=== PATIENT | male | born 1955 | race Caucasian/White ===

== ENCOUNTER 2020-06-16 14:39 | Outpatient (RCR) | payer OTHER, SELFPAY ==
--- NOTE | 2020-06-16 16:04 | PTOPEVAL ---
Thank you for referring Rodney Cuevas to [facility]– [place]Note 2[place]? The patient is scheduled to be seen for therapy? ____x/week for ___ weeks. Please review, sign, date and return this plan of care QUENTIN. I agree with and certify that the following plan of care is medically necessary. Referring Physician Date Admitting Provider: Attending Provider: Francisco Casas Referring Provider: *PT Outpatient Evaluation Start: 06/16/20 14:50 Freq: Status: Active Protocol: Document 06/16/20 14:55 J (Rec: 06/16/20 15:52 Linnea [id number]) Therapy Assessment Status Assessment Status Assessment Status Evaluation Evaluation Information Problem Diagnosis parkinsons, falls, unsteady gait Onset 06/08/20 Subjective Information patient reports he is coming Query Text:As Reported By Patient/ to skilled PT per referral Family from his MD. he reports he needs help with his balance, gait, and to avoid falls. he reports he does have parkinsons. he reports he has been diagnosed over a year ago . he reports he is retired now . he reports prior to [facility] he was working 3 jobs. he reports he has problems with his balance. he reports he has only fallen 1 time. Prior Level of Function Comments Additional Prior Level of Function patient reports he is now Comments retired. [place] he reportshe has not found any hobbies yet with his [facility]. Pain Assessment Timing of Pain Assessment Timing of Pain Assessment Assessment Self Report Self Report Pain Level 0 Pain Score Pain Score 0: Self Report Upper Extremity Range of Motion General Upper Extremity Range of Motion Reason Not Measured WFL/Left,WFL/Right Lower Extremity Range of Motion General Lower Extremity Range of Motion Reason Not Measured WFL/Left,WFL/Right Lower Extremity Muscle Strength Testing Hip Strength Bilateral Hip Flexion Strength 4+ Good + Hip Extension Strength 5 Normal Hip Strength Comments sitting Knee Strength Bilateral Knee Flexion Strength 5 Normal Knee Extension Strength 5 Normal Ankle Strength Bilateral Ankle Dorsiflexion Strength 5 Normal Ankle Plantarflexion Strength 4+ Good + Upper
--- NOTE | 2020-07-06 09:57 | PTOPEVAL ---
Thank you for referring Rodney Cuevas to [facility].? The patient is scheduled to be seen for therapy? ____x/week for ___ weeks. Please review, sign, date and return this plan of care QUENTIN. I agree with and certify that the following plan of care is medically necessary. Referring Physician Date Admitting Provider: Attending Provider: Francisco Casas Referring Provider: *PT Outpatient Evaluation Start: 06/16/20 14:50 Freq: Status: Active Protocol: Document 07/06/20 08:46 ACR (Rec: 07/06/20 09:57 [id number]) Therapy Assessment Status Assessment Status Assessment Status Discharge Evaluation Information Problem Diagnosis parkinsons, falls, unsteady gait Onset 06/08/20 Subjective Information Patient reports since the Query Text:As Reported By Patient/ beginning of therapy he is Family about 50% improved and that walking seems to be a bit easier. Patient reports he can do pretty much everything he needs to do, but requires frequent rest breaks due to the feeling of fatigue in his legs. Pain Assessment Pain Scale Pain Scale Used Numeric (1 - 10) Self Report Pain Assessment Generalized Reported Pain Level 0 Pain Score Pain Score 0: Self Report Interventions Used Interventions Used By Clinicians Activity or ADL's,Education, Exercise Lower Extremity Muscle Strength Testing Hip Strength Bilateral Hip Flexion Strength 5 Normal Hip Extension Strength 5 Normal Upper Extremity Muscle Strength Testing Scapular/Shoulder Bilateral Shoulder Flexion Strength 5 Normal Balance Assessment Tinetti Balance Assessment Sitting Balance Steady, safe Ability to Arise Able, w/o using arms Attempts to Arise Arises on 1st attempt Immediate Standing Balance Steady w/o support Standing Balance Narrow stance w/o support Nudged Response Steady Standing with Eyes Closed Steady Step Pattern Turning 360 Degrees Continuous steps Stability Turning 360 Degrees Steady Sitting Down Safe, steady Initiation of Gait No hesitancy Right Foot Step Length Does pass stance foot Right Foot Step Height Completely clears floor Left Foot Step Length Does pass stance foot Left Foot Step Height Completely clears floor Step Symmetry Step length appears equal Step Continuity Steps appear continuous Path Descript
== END 2020-07-06 15:00 | disposition home or self-care (01) ==
LOC: CHSPT 14:39
DX: G20 Parkinson's disease (principal); R26.81 Unsteadiness on feet
CPT/HCPCS: 97110; 97112; 97140; 97161

== ENCOUNTER 2021-07-22 08:02 | Outpatient (CLI) | payer OTHER, SELFPAY ==
[2021-07-22 08:50] LABS: Add Urine Microscopic? NO; Appearance Urine Clear (Clear); Bilirubin Urine Negative (Negative); Blood Urine Negative (Negative); Color Urine Light Yellow (Yellow); Glucose Urine UA Negative (Negative); Ketones Urine Negative (Negative); Leukocyte Esterase Ur Negative (Negative); Nitrate Urine Negative (Negative); Protein Urine Negative (Negative); Specific Grav Ur >= 1.030 (1.010-1.020); Urobilinogen Urine 0.2 mg/dL (0.2-1.0)
[2021-07-22 09:36] LABS: Alanine Aminotransferase 23 U/L (16-63); Albumin Level 4.4 g/dL (3.4-5.0); Alkaline Phosphatase 63 U/L (46-116); Anion Gap 8 mmol/L (8-16); Aspartate Amino Transferase 21 U/L (15-37); Bilirubin,Total 0.7 mg/dL (0.00-1.00); Blood Urea Nitrogen 34 mg/dL (7-18); Calcium 9.4 mg/dL (8.5-10.1); Carbon Dioxide 30 mmol/L (21-32); Chloride 100 mmol/L (98-108); Cholesterol 213 mg/dL (0-200); Creatine Kinase 117 U/L (39-308); Estimated Glomerular Filt Rate 55; Glucose 87 mg/dL (70-99); HDL Direct 85 mg/dL (40-60); LDL Cholesterol Calculated 110 mg/dL (<130); Osmolality Calculated 292 mOsm/kg (285-295); Potassium 5.7 mmol/L (3.5-5.1); Sodium 138 mmol/L (136-145); Total Protein 7.5 g/dL (6.4-8.2); Triglycerides 92 mg/dL (0-150)
== END 2021-07-22 08:03 | disposition home or self-care (01) ==
LOC: CHSLAB 08:04
PROVIDERS: PCP Internal Medicine; Visit Provider Internal Medicine
DX: E78.2 Mixed hyperlipidemia (principal); I10 Essential (primary) hypertension
CPT/HCPCS: 36415; 80053; 80061; 81003; 82550

== ENCOUNTER 2021-08-13 12:46 | Outpatient (CLI) | payer OTHER, SELFPAY ==
--- NOTE | ~2021-08-13 | CT_ITS ---
EXAMINATION: CT sinus wo con DATE: 08/13/2021 13:15 INDICATION: Chronic sinusitis TECHNIQUE: Computed tomography (CT) of the paranasal sinuses was performed without contrast. Iterativ e reconstruction technique was employed. Exam dose: 273.54 mGy-cm total exam DLP. COMPARISON: None FINDINGS: There is rightward bowing of the nasal septum. There is poonam bullosa and intralamellar cell of the left middle nasal turbinate. The nasal turbinat es are prominently swollen bilaterally, left greater than right. The ostiomeatal units are patent. Small bilateral nasal antral windows open to the middle meatus on each side. 1.4 cm polyp or mucous retention cyst at the floor of the left maxillary sinus. There is minimal mucoperiosteal thickening of the right frontal sinus and anterior right ethmoid air cells. The paranasal sinuses are otherwise normally developed and aerated. The mastoid air cells are normally developed and aerated. Middle and inner ear apparatus appear laura l bilaterally. IMPRESSION: Borderline nasal septum Poonam bullosa and intralamellar cell of left middle nasal turbinate Patent ostiomeatal units Small bilateral nasal antral windows 1.4 cm polyp or mucous retention cyst at the floor of the left maxillary sinus Minimal mucoperiosteal thickening of the right frontal sinus and anterior ethmoids Reviewed, dictated and finalized at [facility]. Reviewed, dictated and finalized at location B. BUILDER IMPRESSION: Borderline nasal septum Poonam bullosa and intralamellar cell of left middle nasal turbinate Patent ostiomeatal units Small bilateral nasal antral windows 1.4 cm polyp or mucous retention cyst at the floor of the left maxillary sinus Minimal mucoperiosteal thickening of the right frontal sinus and anterior ethmo ids
== END 2021-08-13 12:47 | disposition home or self-care (01) ==
LOC: CHSIMG 12:49
PROVIDERS: PCP Internal Medicine; Visit Provider Internal Medicine
DX: J32.9 Chronic sinusitis, unspecified (principal)
CPT/HCPCS: 70486

== ENCOUNTER 2021-09-02 11:31 | Outpatient (CLI) | payer OTHER, SELFPAY ==
[2021-09-02 12:07] LABS: Anion Gap 9 mmol/L (8-16); Blood Urea Nitrogen 21 mg/dL (7-18); Calcium 9.2 mg/dL (8.5-10.1); Carbon Dioxide 30 mmol/L (21-32); Chloride 104 mmol/L (98-108); Estimated Glomerular Filt Rate 57; Glucose 79 mg/dL (70-99); Osmolality Calculated 298 mOsm/kg (285-295); Potassium 4.9 mmol/L (3.5-5.1); Sodium 143 mmol/L (136-145)
== END 2021-09-02 11:32 | disposition home or self-care (01) ==
LOC: CHSLAB 11:32
PROVIDERS: PCP Internal Medicine; Visit Provider Internal Medicine
DX: I10 Essential (primary) hypertension (principal)
CPT/HCPCS: 36415; 80048

== ENCOUNTER 2021-10-15 12:18 | Outpatient (CLI) | payer OTHER, SELFPAY ==
--- NOTE | 2021-10-15 12:20 | ECG_ITS ---
Measurements Intervals [place] Rate: 64 P: 48 OH: 170 QRS: 5 QRSD: 122 T: 9 QT: 409 QTc: 422 Interpretive Statements SINUS RHYTHM POOR R-WAVE PROGRESSION ABNORMAL ECG NO PREVIOUS ECG AVAILABLE FOR COMPARISON Electronically Signed On 10-15-2021 15:33:19 CDT by Miguel Esquivel M.D.
== END 2021-10-15 12:19 | disposition home or self-care (01) ==
PROVIDERS: PCP Internal Medicine; Visit Provider Anesthesiology
DX: I10 Essential (primary) hypertension (principal)
CPT/HCPCS: 93005

== ENCOUNTER 2021-10-22 00:57 | Day surgery (SDC) | payer OTHER, SELFPAY ==
[2021-10-15 11:47] VITALS: BMI 32.8
--- NOTE | 2021-10-15 12:03 | PC.NURSE ---
Report to the Outpatient Waiting Room, entrance under the green pavilion located off [facility], at time _0800_ on date _10/22/21_. OR Time: _1000_. - You and your visitor will be asked a series of questions to screen for COVID 19 for your protection. - A mask is required within the hospital. One visitor will be allowed to accompany the patient into the hospital. Patients visitor will be instructed to remain with patient at all times or leave the building. We will allow the visitor to come back to the postoperative area when patient is ready. Preoperative COVID Testing Requirements: NONE Patients may have clear liquids (water, carbonated beverages, clear teas, apple juice) until 3 hours prior to surgery (0700 AM) with a maximum of 20 ounces. - No food from midnight until time of surgery Take the following medications with a SIP of water the morning of surgery: _BUPROPION, BUSPIRONE, CARBIDOPA-LEVODOPA, CLONAZEPAM, ESCITALOPRAM, GABAPENTIN, NASAL SPAY_ Medications to discontinue _ASPIRIN PER DR. MURRELL'S INSTRUCTIONS, MULTIVITAMIN 3 DAYS PRIOR TO SURGERY PER ANESTHESIA, Date to take last dose 10/18/21_ Please no deodorant, or body powder the day of surgery. No jewelry (including any body piercings) or valuables the day of surgery, leave them at home. Please take a shower or bath the night before, or the morning of, surgery with an antibacterial soap. Wear comfortable, loose fitting clothing. - Jewelry must be removed prior to entering the operating room. Rings and piercings that are not removed may be cut off. - The hospital will not accept responsibility for valuables. - Please leave all valuables, including medications, at home the day of surgery. If you are going home after surgery, a licensed van driver must drive you home. - NO public transportation without another adult. - We recommend that an adult stay with you for 24 hours following discharge. - We also recommend that you do not drive, make important decision, drink alcoholic beverages, or take any drugs that were not prescribed by your health care provider for at least 24 hours after your discharge time. Follow any additional instructions given to you from your surgeon. Telephone instructions given to _PT'S SPOUSE (HAYLIE)_and asked if any additional questions and then verbalized understanding. Patient advised to call surgeon office or pre surgery nurse liaison [phone] if any additional questions.
--- NOTE | 2021-10-21 08:06 | PM.IMHP ---
H&P: HPI History of Present Illness Date/Time: 10/21/21 08:06 Chief Complaint: Nasal obstruction nasal congestion poonam bullosa on the left septal deviation turbinate hypertrophy chronic sinusitis. Narrative: Patient presents for planned surgical procedure no change in symptoms no change in history Review of Systems Constitutional: Constitutional: Denies fatigue, Denies fever(s) and Denies lethargy Eyes: Eyes: Denies blurry vision and Denies change in vision ENT: Reports as per HPI Cardiovascular: Cardiovascular: Denies chest pain Respiratory: Respiratory: Denies cough Endocrine: Endocrine: Denies fatigue Hematologic/Lymphatic: Hematologic/Lymphatic: Denies easy bleeding, Denies easy bruising and Denies lymphadenopathy Allergic/Immunologic: Allergic/Immunologic: Denies seasonal rhinorrhea [facility] Past Medical History Medical History (Updated 10/21/21 @ 08:09 by Gabriel Jarrett MD) Allergies Anxiety Hypertension Ulcer Family History Family History (Updated 09/08/21 @ 09:54 by Camille Zamora MA) Father Asthma Heart disease Mother Depression Sibling Diabetes mellitus Hypertension Depression Grandparent Heart disease Social History Social History (Updated 09/08/21 @ 09:54 by Camille Zamora MA) Smoking status: Never smoker Second hand tobacco smoke exposure: No Alcohol intake: never Substance use: never Substance use type: does not use Spiritual care concerns: No Meds Home Medications and Allergies Home Medications Medication Instructions Recorded Confirmed Type aspirin 81 mg tablet,delayed 81 mg PO DAILY 09/08/21 10/15/21 History release azelastine 137 mcg (0.1 %) nasal 1 spray INTRANASAL Q12H #30 ml 09/08/21 10/15/21 Rx spray aerosol bupropion HCl 200 mg tablet,12 hr 200 mg PO DAILY tablet 09/08/21 10/15/21 History sustained-release buspirone 10 mg tablet 10 mg PO TID 09/08/21 10/15/21 History carbidopa 25 mg-levodopa 100 mg 2 tablet PO QID tablet 09/08/21 10/15/21 History tablet cetirizine 10 mg tablet 10 mg PO DAILY PRN 09/08/21 10/15/21 History clonazepam 1 mg tablet 1 mg PO DAILY 09/08/21 10/15/21 History escitalopram oxalate 20 mg tablet 20 mg PO DAILY 09/08/21 10/15/21 History fluticasone propionate 50 2 spray INTRANASAL BID #16 ml 09/08/21 10/15/21 Rx mcg/actuation nasal spray,suspension gabapentin 100 mg capsule 100 mg PO DAILY 09/08/21 10/15/21 History lisinopril 40 mg tablet 40 mg PO DAILY 09/08/21 10/15/21 History rosuvastatin 5 mg tablet 5 mg PO DAILY 09/08/21 10/15/21 History omeprazole 20 mg capsule,delayed 20 mg PO DAILY #14 cap 10/12/21 10/15/21 Rx release donepezil 10 mg PO HS 10/15/21 10/15/21 History multivitamin [Multi-Vitamin] 1 tablet PO DAILY 10/15/21 10/15/21 History famotidine 20 mg tablet See Rx Instructions .ROUTE 10/19/21 Rx .COMPLEX #30 tablet Allergies Allergy/AdvReac Type Severity Reaction Status Date / Time No Known Allergies Allergy Verified 10/15/21 11:36 Exam Const: General: cooperative, healthy appearing, comfortable, well developed and alert HENMT: Head: normal to inspection, normocephalic and atraumatic Ears: hearing grossly normal bilaterally, external ears normal, TM's normal bilaterally and EAC's normal General nose exam: Normal external nose present, Normal nares present and Other nasal findings present ( septal deviation turbinate hypertrophy) Face and sinus: normal facial exam Mouth: Yes Normal oral and palatal mucosa present, Yes lip normal, Yes tongue normal, Yes oropharynx normal and Yes moist mucous membranes Teeth and gingiva: dentition normal and gingiva normal Throat: posterior oropharynx normal, tonsils normal and uvula midline Eyes: General: appearance normal, both eyes and all related structures Periorbital: periorbital findings normal Eyelids: eyelids normal Conjunctivae: conjunctivae normal Sclera: sclerae normal Neck: Neck: normal visual inspection, full ROM and n
[2021-10-22] VITALS (7 sets, daily range): BP systolic 134–160; BP diastolic 77–87; PULSE 78–83; RESP 10–18; TEMP 36.1; O2SAT 96–100
--- NOTE | 2021-10-22 07:14 | WPDHPUPDATE1 ---
History and Physical Update Update Date/Time: 10/22/21 07:14 History and Physical has been reviewed, including an updated exam of the patient. There are NO changes in the patient's condition. Risks, benefits, and alternatives have been discussed and questions answered. Patient agrees to proceed with procedure.
[2021-10-22] MEDS: ACETAMINOPHEN 500 MG TABLET 1000 MG PO (08:34)
[2021-10-22] MEDS: LACTATED RINGERS 1,000 ML 30 ML IV CONT ×2 (09:00→12:32)
--- NOTE | 2021-10-22 09:59 | WPDANESEPPF ---
Anes - Initial Pre Proc Eval Procedure: Operation Date: 10/22/21 10:00 Proposed Procedures p Image Guided Endoscopic Bilateral Maxillary Antrostomy, Total Ethmoidectomy, Frontal Sinusotomy, Bilateral Inferior Turbinectomy with Outfracture, - Gabriel Jarrett MD s Septoplasty - Gabriel Jarrett MD Date/Time: 10/22/21 09:59 Surgeon: Gabriel Jarrett MD Pre Op Diagnosis: chronic sinusitis Patient Data Age: 66 Gender: M Height: 1.75 m Weight: 100.9 kg Allergies Allergy/AdvReac Type Severity Reaction Status Date / Time No Known Allergies Allergy Verified 10/15/21 11:36 Home Medications Medication Instructions Recorded Confirmed Type aspirin 81 mg tablet,delayed 81 mg PO DAILY 09/08/21 10/15/21 History release azelastine 137 mcg (0.1 %) nasal 1 spray INTRANASAL Q12H #30 ml 09/08/21 10/15/21 Rx spray aerosol bupropion HCl 200 mg tablet,12 hr 200 mg PO DAILY tablet 09/08/21 10/15/21 History sustained-release buspirone 10 mg tablet 10 mg PO TID 09/08/21 10/15/21 History carbidopa 25 mg-levodopa 100 mg 2 tablet PO QID tablet 09/08/21 10/15/21 History tablet cetirizine 10 mg tablet 10 mg PO DAILY PRN 09/08/21 10/15/21 History clonazepam 1 mg tablet 1 mg PO DAILY 09/08/21 10/15/21 History escitalopram oxalate 20 mg tablet 20 mg PO DAILY 09/08/21 10/15/21 History fluticasone propionate 50 2 spray INTRANASAL BID #16 ml 09/08/21 10/15/21 Rx mcg/actuation nasal spray,suspension gabapentin 100 mg capsule 100 mg PO DAILY 09/08/21 10/15/21 History lisinopril 40 mg tablet 40 mg PO DAILY 09/08/21 10/15/21 History rosuvastatin 5 mg tablet 5 mg PO DAILY 09/08/21 10/15/21 History omeprazole 20 mg capsule,delayed 20 mg PO DAILY #14 cap 10/12/21 10/15/21 Rx release donepezil 10 mg PO HS 10/15/21 10/15/21 History multivitamin [Multi-Vitamin] 1 tablet PO DAILY 10/15/21 10/15/21 History famotidine 20 mg tablet See Rx Instructions .ROUTE 10/19/21 Rx .COMPLEX #30 tablet Patient hx anesthesia problems: none Family hx anesthesia problems: none Results Review: All pre-operative results and documents have been reviewed as part of the pre-operative evaluation. [facility] Past Medical History Medical History (Updated 10/21/21 @ 08:09 by Gabriel Jarrett MD) Allergies Anxiety Hypertension Ulcer Family History Family History (Updated 09/08/21 @ 09:54 by Camille Zamora MA) Father Asthma Heart disease Mother Depression Sibling Diabetes mellitus Hypertension Depression Grandparent Heart disease Social History Social History (Updated 09/08/21 @ 09:54 by Camille Zamora MA) Smoking status: Never smoker Second hand tobacco smoke exposure: No Alcohol intake: never Substance use: never Substance use type: does not use Living arrangements: with family Spiritual care concerns: No Anes - Eval Final PreProcedure Day of Procedure 10/22/21 09:59 Patient weight: obese Heart: regular rate and rhythm Lungs: clear to auscultation Airway: Mallampati scale class III Neurological: alert and oriented Last oral intake: >/= 8 hours ASA classification: III Emergent: no Anesthetic plan: proceed Anesthesia type and monitoring: general ETT and standard monitoring Results Review: All pre-operative results and documents have been reviewed as part of the pre-operative evaluation. Informed Consent: The patient's anesthetic plan and its attendant risks and benefits were discussed with the patient/family/POA. Questions were solicited and answers provided to the satisfaction of the patient/family/POA.
[2021-10-22] MEDS: ceFAZolin 2 GM/D5W 50 ML 2 GM/50 ML BAG IVPB (10:11)
[2021-10-22] MEDS: OXYMETAZOLINE HCL 0.05% NAS 15 ML BTL (*BKC) 1 SPRAY NASAL (10:32)
[2021-10-22] MEDS: LIDO 1%/EPINEPHRINE 1:100,000 50 ML VIAL 10 ML INFILTRATE (11:05)
[2021-10-22] MEDS: MUPIROCIN 2% OINT 22 GM TUBE 1 APPLIC EACH NARE (11:59)
--- NOTE | 2021-10-22 12:37 | P.OP_ITS ---
Procedure Note - Detailed Date of Procedure 10/22/21 Pre-op Diagnosis chronic sinusitis, nasal obstruction, nasal congestion, septal deviation, turbinate hypertrophy, left poonam bullosa Post-op Diagnosis Same Procedure Performed Bilateral image guided endoscopic maxillary antrostomies total ethmoidectomies frontal sinusotomies, endoscopic assisted septoplasty, inferior turbinate submucosal resection with outfracture, left resection poonam bullosa Surgeon Gabriel Jarrett MD Anesthesia General Indications See above Findings Fairly normal appearing mucosa some edema. Left poonam resected providing much better outflow the frontal sinus. Deviated septum corrected no perforations turbinates well reduced following procedure Description of Procedure Patient identified consent verified. Patient brought operating room. Time-out performed. General anesthesia induced. Endotracheal tube secured taped left lower lip. Patient prepped and draped. Second time-out performed. Afrin- soaked pledgets placed for 5 minutes then removed. Image guidance initiated. [place] incision made on the left side following the injection of 1% lidocaine 1 100,000 parts epinephrine the bilateral septum and turbinates. [place] incision made left side a 15 blade left-sided mucoperichondrial flap elevated with 7 Tajik suction septum crust over with osteotome right-sided flap elevated. Deviated septum removed combination osteotome [place] Bang forceps Sari forceps. Septum closed anteriorly with interrupted 5 0 fast gut sutures. Turbinates reduced in the submucosal plane 2 mm turbinate blade outfracture the [place] elevator bilaterally. Maxillary antrostomies performed with double ball tip probe, straight through cut, micro debrider. Total ethmoidectomies performed with [place] image guidance microdebrider there was a right-sided skull base small mucocele that was left. Frontal sinuses opened combination 70 degree endoscope 70 degree image guided suction frontal sinus seeker as well as Cobra Hosemann punch [id number] and front to back draft good openings following sinusotomies bilaterally. Left poonam was opened using a sickle blade straight through cut micro debrider. Provided much better opening to the left frontal sinus outflow tract poonam was left-sided procedure. Total blood loss about 25 cc. I performed all dictated portions of the procedure. Care the patient turned over to Anesthesiology. No complications. No pack placed bilateral middle meati I Osborne splints placed sutured anteriorly using 3-0 mattressed nylon suture. Estimated Blood Loss 25 Drains No Packing Yes (Nova pack) Pathology None sent Complications No immediate complications Condition Stable Disposition PACU
== END 2021-10-22 14:13 | disposition home or self-care (01) ==
PROVIDERS: PCP Internal Medicine; Visit Provider Otolaryngology
PROC: (CPT 31256; principal; 2021-10-22 10:00)
PROC: (CPT 30520; 2021-10-22 10:00)
DX: J32.9 Chronic sinusitis, unspecified (principal); J34.3 Hypertrophy of nasal turbinates; J34.2 Deviated nasal septum; J34.89 Other specified disorders of nose and nasal sinuses; R09.82 Postnasal drip; R09.81 Nasal congestion; I10 Essential (primary) hypertension; F41.9 Anxiety disorder, unspecified; Z79.82 Long term (current) use of aspirin; E66.9 Obesity, unspecified; Z68.31 Body mass index [BMI] 31.0-31.9, adult
CPT/HCPCS: 31256; 31253; 61782; 31240; 30520; 30140; A9270; J0690; J1100; J2250; J2405; J2704; J3010; J7120

== ENCOUNTER 2021-10-27 14:44 | Outpatient (CLI) | payer OTHER, SELFPAY ==
--- NOTE | ~2021-10-27 | US_ITS ---
EXAMINATION: US pelvic limited DATE: 10/27/2021 15:17 INDICATION: Urgency polyuria TECHNIQUE: Multiple grayscale and Doppler ultrasound images of the bladder were obtained. COMPARISON: None available FINDINGS: No bladder wall thickening or mass. No echogenic debris. Pre-void volume = 47.8 ml. Post-void volume = 3 ml. IMPRESSION: 1. No post-void residual 2. Patient experienced sensation of early bladder filling. Reviewed, dictated and finalized at location K.
== END 2021-10-27 14:45 | disposition home or self-care (01) ==
LOC: CHSIMG 14:45
PROVIDERS: PCP Internal Medicine; Visit Provider Internal Medicine
DX: R35.89 Other polyuria (principal); R39.15 Urgency of urination; R33.9 Retention of urine, unspecified
CPT/HCPCS: 76857

== ENCOUNTER 2022-03-03 02:02 | Day surgery (SDC) | payer OTHER, SELFPAY ==
[2022-02-22 14:39] VITALS: BMI 32.5
[2022-03-03 07:00] VITALS: BP 160/82; PULSE 70; RESP 18; TEMP 36.6; O2SAT 98
[2022-03-03] MEDS: LACTATED RINGERS 1,000 ML 150 ML IV CONT (07:03)
--- NOTE | 2022-03-03 07:25 | WPDHPUPDATE1 ---
History and Physical Update Update Date/Time: 03/03/22 07:25 History and Physical has been reviewed, including an updated exam of the patient. There are NO changes in the patient's condition. Risks, benefits, and alternatives have been discussed and questions answered. Patient agrees to proceed with procedure.
--- NOTE | 2022-03-03 07:39 | WPDANESEPPF ---
Anes - Initial Pre Proc Eval Procedure: Operation Date: 03/03/22 08:00 Proposed Procedures p Esophagogastroduodenoscopy - Zurdo Rojas MD Date/Time: 03/03/22 07:39 Surgeon: Zurdo Rojas MD Pre Op Diagnosis: GERD Patient Data Age: 66 Gender: M Height: 1.75 m Weight: 102.4 kg Last Vital Signs Temp 98 F 03/03/22 07:00 Pulse 70 03/03/22 07:00 Resp 18 03/03/22 07:00 BP 160/82 H 03/03/22 07:00 Pulse Ox 98 03/03/22 07:00 O2 Del Method Room Air 03/03/22 07:00 Allergies Allergy/AdvReac Type Severity Reaction Status Date / Time No Known Allergies Allergy Verified 03/03/22 06:58 Home Medications Medication Instructions Recorded Confirmed Type aspirin 81 mg tablet,delayed 81 mg PO DAILY 09/08/21 03/03/22 History release (Adult Low Dose Aspirin) bupropion HCl 200 mg tablet,12 hr 200 mg PO DAILY 09/08/21 03/03/22 History sustained-release buspirone 10 mg tablet 10 mg PO TID 09/08/21 03/03/22 History carbidopa 25 mg-levodopa 100 mg 2 tablet PO QID 09/08/21 03/03/22 History tablet cetirizine 10 mg tablet 10 mg PO DAILY PRN Congestion 09/08/21 03/03/22 History escitalopram oxalate 20 mg tablet 20 mg PO DAILY 09/08/21 03/03/22 History gabapentin 100 mg capsule 100 mg PO DAILY 09/08/21 03/03/22 History lisinopril 40 mg tablet 40 mg PO DAILY 09/08/21 03/03/22 History rosuvastatin 5 mg tablet 5 mg PO DAILY 09/08/21 03/03/22 History donepezil 10 mg tablet 10 mg PO HS 10/15/21 03/03/22 History multivitamin 1 tablet PO DAILY 10/15/21 03/03/22 History clonazepam 1 mg tablet 1 mg PO BID 02/14/22 03/03/22 History lansoprazole 30 mg capsule,delayed 30 mg PO .30 minutes before me #30 02/14/22 03/03/22 Rx release caps sucralfate 1 gram tablet (Carafate) 1 g PO .AC HS 1 month #120 tabs 02/14/22 03/03/22 Rx tamsulosin 0.4 mg capsule 0.4 mg PO DAILY 02/14/22 03/03/22 History Patient hx anesthesia problems: none Family hx anesthesia problems: none Results Review: All pre-operative results and documents have been reviewed as part of the pre-operative evaluation. PMFSH Past Medical History Medical History Allergies Anxiety Hypertension Ulcer Surgical History Surgical History (Updated 02/14/22 @ 13:53 by Rosemarie Timmons MA) History of appendectomy Previous back surgery Family History Family History Father Asthma Heart disease Mother Depression Sibling Diabetes mellitus Hypertension Depression Grandparent Heart disease Social History Social History Smoking status: Never smoker Second hand tobacco smoke exposure: No Alcohol intake: never Substance use: never Substance use type: does not use Living arrangements: with family Spiritual care concerns: No Anes - Eval Final PreProcedure Day of Procedure 03/03/22 07:39 Patient weight: obese Heart: regular rate and rhythm Lungs: clear to auscultation Airway: Mallampati scale class III Neurological: alert and oriented Last oral intake: >/= 8 hours ASA classification: III Emergent: no Anesthetic plan: proceed Anesthesia type and monitoring: general GIVS and standard monitoring Results Review: All pre-operative results and documents have been reviewed as part of the pre-operative evaluation. Informed Consent: The patient's anesthetic plan and its attendant risks and benefits were discussed with the patient/family/POA. Questions were solicited and answers provided to the satisfaction of the patient/family/POA.
[2022-03-03 07:59] VITALS: BP 129/75; PULSE 60; RESP 18; O2SAT 95
[2022-03-03 08:09] VITALS: BP 151/86; PULSE 62; RESP 17; O2SAT 98
[2022-03-03 08:19] VITALS: BP 157/91; PULSE 62; RESP 20; O2SAT 96
== END 2022-03-03 08:36 | disposition home or self-care (01) ==
PROVIDERS: PCP Internal Medicine; Visit Provider Internal Medicine Gastroenterology
PROC: 0DJ08ZZ Inspection of Upper Intestinal Tract, Via Natural or Artificial Opening Endoscopic (ICD-10-PCS; CPT 43235; principal; 2022-03-03 08:00)
DX: R13.10 Dysphagia, unspecified (principal); K21.9 Gastro-esophageal reflux disease without esophagitis; I10 Essential (primary) hypertension; F41.9 Anxiety disorder, unspecified; Z79.82 Long term (current) use of aspirin; E66.9 Obesity, unspecified; Z68.33 Body mass index [BMI] 33.0-33.9, adult
CPT/HCPCS: 43239; 87081; J2704; J7120

== ENCOUNTER 2022-03-24 05:49 | Emergency (ER) | payer OTHER, SELFPAY ==
--- NOTE | ~2022-03-24 | CT_ITS ---
EXAMINATION: CT brain wo con DATE: 03/24/2022 06:05 INDICATION: Confusion. TECHNIQUE: Computed tomography (CT) of the head was performed without intravenous contrast. The mA wa s adjusted according to patient size. Iterative reconstruction technique was employed. The dose-lengt h product was 681.00 mGy-cm. COMPARISON: Brain MRI 09/27/2017 FINDINGS: There is no intracranial hemorrhage, acute infarction, or abnormal intracranial mass lesion . The ventricles are normal in size. There is mild mucosal thickening in the paranasal sinuses. There are surgical changes in the paranasal sinuses. The mastoid air cells are normal. The orbits are norm al. IMPRESSION: 1. Normal brain. Reviewed, dictated and finalized at location A. IMPRESSION: 1. Normal brain.
[2022-03-24 05:55] VITALS: BP 145/80; PULSE 80; RESP 20; TEMP 36.1; O2SAT 95
--- NOTE | 2022-03-24 06:03 | ECG_ITS ---
Measurements Intervals Mobile Rate: 77 P: 62 TN: 148 QRS: 28 QRSD: 124 T: 41 QT: 414 QTc: 470 Interpretive Statements SINUS RHYTHM INTRAVENTRICULAR CONDUCTION DELAY BORDERLINE R WAVE PROGRESSION, ANTERIOR LEADS BORDERLINE ST-T WAVE ABNORMALITY- INFERIOR LEADS BASELINE ARTIFACT- II, III, AVR, AVL, AVF, V1-V6 BORDERLINE ECG COMPARED TO ECG 10/15/2021 12:37:59 NO SIGNIFICANT CHANGES Electronically Signed On 03-24-2022 6:43:43 CDT by Ronnie Martines D.O.
[2022-03-24 06:10] LABS: Glucose Point of Care 95 mg/dl (65-105)
--- NOTE | 2022-03-24 06:13 | ED.AMS ---
HPI - Altered Mental Status General Chief Complaint: Altered Mental Status Stated Complaint: mental status Time Seen by Provider: 03/24/22 07:13 Source: patient and family Mode of arrival: ambulatory Limitations: dementia History of Present Illness HPI narrative: patient is a 66-year-old white male with history of dementia and Parkinson's disease who woke up this morning at 4:15 a.m. to avoid and then document that on a paper for his physician date and time. He documented correctly but then got into bed and could not remember that he did it correctly. So he walked his up and told her he could remember the date and time to write down as piece paper for the doctor. He also wears CPAP and had a CPAP in his hand and he asked his was this for pointing to his CPAP mask. So brought patient in for evaluation. His dementia prior to this was significant for forgetting names and that is pretty much the extent of his dementia prior to tonight. So since he was more confused than usual. He has had no changes in his medications recently. He did get a bladder stimulator placed on March 21 which is helping him decrease his urinary frequency. His only other recent medical problem is bad taste in his mouth at night. He has undergone upper and lower endoscopy which has been negative. And he is going for motility studies to be scheduled. He did have heartburn is given medication for this which resolved his heartburn. He has difficulty walking a little unsteady on his feet but does not use a walker or a cane. Denies any weakness numbness or paresthesias difficulty seeing hearing or talking. Or facial droop. Patient was last known well at 10:00 p.m. when he went to sleep. Yesterday he was doing fine. He denies any pain shortness of breath or cough Related Data Home Medications Medication Instructions Recorded Confirmed aspirin 81 mg tablet,delayed 81 mg PO DAILY 09/08/21 03/24/22 release (Adult Low Dose Aspirin) bupropion HCl 200 mg tablet,12 hr 200 mg PO DAILY 09/08/21 03/24/22 sustained-release escitalopram oxalate 20 mg tablet 20 mg PO DAILY 09/08/21 03/24/22 gabapentin 100 mg capsule 100 mg PO DAILY 09/08/21 03/24/22 rosuvastatin 5 mg tablet 5 mg PO DAILY 09/08/21 03/24/22 donepezil 10 mg tablet 10 mg PO HS 10/15/21 03/24/22 multivitamin 1 tablet PO DAILY 10/15/21 03/24/22 clonazepam 1 mg tablet 1 mg PO BID 02/14/22 03/24/22 carbidopa 25 mg-levodopa 100 mg 2.5 tablet PO QID 03/16/22 03/24/22 tablet amlodipine 10 mg tablet 10 mg PO DAILY 03/24/22 03/24/22 Allergies Allergy/AdvReac Type Severity Reaction Status Date / Time No Known Allergies Allergy Verified 03/16/22 14:59 Review of Systems Review of Systems: All systems reviewed & are unremarkable except as noted in HPI and below Constitutional: Constitutional: Reports no additional constitutional complaints Eyes: Eyes: Reports as per HPI and Reports no additional eye complaints ENT: Reports system reviewed and no additional complaints, except as documented, Denies vertigo, Denies dizziness, Denies nasal congestion and Denies sore throat Cardiovascular: Cardiovascular: Reports no additional cardiovascular complaints and Denies chest pain Respiratory: Respiratory: Reports as per HPI and Reports no additional respiratory complaints Gastrointestinal: Gastrointestinal: Reports no additional gastrointestinal complaints Genitourinary: Genitourinary: Reports no additional male genitourinary complaints, Reports as per HPI, Denies hematuria, Denies oliguria, Denies dysuria, Reports urinary frequency and Denies urinary incontinence Comments: History kidney stones Musculoskeletal: Musculoskeletal: Reports back pain ( chronic back pain without changes he has had a history of 3 back surgeries) Integumentary/Breasts: Skin/Breast: Reports system reviewed and no additional complaints, except as docu, Denies pruritus and Denies rash Comments: no masses lumps or bu
[2022-03-24 06:19] LABS: Basophils Absolute Auto 0.05 K/mm3 (0.00-0.10); Basophils Percent Auto 0.6 % (0.0-1.0); Eosinophils Absolute Auto 0.15 K/mm3 (0.02-0.50); Eosinophils Percent Auto 1.7 % (1.0-6.0); Hematocrit 48.1 % (37.0-46.0); Hemoglobin 15.6 g/dL (12.4-15.3); Immature Granulocyte Absolute 0.04 K/mm3 (0.00-0.00); Immature Granulocyte Percent A 0.4 % (0.0-0.0); Lymphocytes Percent Auto 11.2 % (18.0-42.0); Mean Corpuscular HGB Conc 32.4 g/dL (32.0-36.0); Mean Corpuscular Hemoglobin 31.6 pg (27.0-31.0); Mean Corpuscular Volume 97.4 fL (78.0-102.0); Mean Platelet Volume 10.7 fl (8.7-11.0); Monocytes Absolute Auto 0.67 K/mm3 (0.10-0.90); Monocytes Percent Auto 7.5 % (2.0-11.0); Neutrophils Percent Auto 78.6 % (50.0-70.0); Platelet Count Result 233 K/mm3 (150-420); Red Blood Count 4.94 M/mm3 (4.70-6.10); Red Cell Distribution Width 12.4 % (11.6-14.4); White Blood Count 8.9 K/mm3 (4.8-10.8)
[2022-03-24 06:34] LABS: Partial Thromboplastin Time 26.7 SEC (23.90-30.70); Prothrombin Time 11.2 Seconds (9.50-12.10)
[2022-03-24 06:38] LABS: Alanine Aminotransferase 16 U/L (16-63); Albumin Level 3.8 g/dL (3.4-5.0); Alkaline Phosphatase 76 U/L (46-116); Anion Gap 6 mmol/L (8-16); Aspartate Amino Transferase 17 U/L (15-37); Bilirubin,Total 0.7 mg/dL (0.00-1.00); Blood Urea Nitrogen 19 mg/dL (7-18); Calcium 8.9 mg/dL (8.5-10.1); Carbon Dioxide 31 mmol/L (21-32); Chloride 103 mmol/L (98-108); Estimated CRCL calculation 53 ml/min; Estimated Glomerular Filt Rate > 60; Glucose 98 mg/dL (70-99); Osmolality Calculated 292 mOsm/kg (285-295); Potassium 3.8 mmol/L (3.5-5.1); Sodium 140 mmol/L (136-145); Total Protein 6.7 g/dL (6.4-8.2); Troponin I 8.1 ng/L (0.00-60.4)
[2022-03-24 07:00] VITALS: BP 148/88; PULSE 79; RESP 16; TEMP 36.8; O2SAT 97
[2022-03-24 07:16] LABS: Add Urine Microscopic? NO; Appearance Urine Clear (Clear); Bilirubin Urine Negative (Negative); Blood Urine Negative (Negative); Color Urine Yellow (Yellow); Glucose Urine UA Negative (Negative); Ketones Urine Negative (Negative); Leukocyte Esterase Ur Negative (Negative); Nitrate Urine Negative (Negative); Protein Urine Negative (Negative); Specific Grav Ur 1.025 (1.010-1.020)
[2022-03-24 07:26] LABS: Glucose Point of Care 95 mg/dl (65-105)
[2022-03-24 07:40] VITALS: BP 149/87; PULSE 71; RESP 16
== END 2022-03-24 07:44 | disposition home or self-care (01) ==
PROVIDERS: Emergency Medicine; Emergency Provider Emergency Medicine; PCP Internal Medicine
DX: F03.90 Unspecified dementia, unspecified severity, without behavioral disturbance, psychotic disturbance, mood disturbance, and anxiety (principal); G20 Parkinson's disease; E78.5 Hyperlipidemia, unspecified; I10 Essential (primary) hypertension
CPT/HCPCS: 36415; 70450; 80053; 81003; 82948; 84484; 85025; 85610; 85730; 93005; 99284

== ENCOUNTER 2022-06-10 02:13 | Day surgery (SDC) | payer OTHER, SELFPAY ==
--- NOTE | 2022-05-30 14:05 | PC.NURSE ---
Report to the Outpatient Waiting Room, entrance under the green pavilion located off [address], at time ___0700____ on date _06/10/22 . Planned Procedure Time: _0900 . Time changes happen often and if your time is changed the preop area will call you the afternoon before. - You and your visitor will be asked to self-screen and do not enter if you have any COVID symptoms. - Only one visitor is requested with a max of two and NO children visitors are allowed at this time. - The patient visitor may be requested to leave or wait in car when not with patient due to distancing restrictions. - A mask is optional within the hospital. Patients may have clear liquids (water, carbonated beverages, clear teas, apple juice) until 3 hours prior to surgery with a maximum of 20 ounces. - No food from midnight until time of surgery - Infants may have breast milk until 4 hours before surgery, formula 6 hours prior to surgery. - Children will be allowed to drink immediately following surgery. If applicable, please bring a bottle or sippy cup to assist with drinking. Juice, water, soda, and popsicles are readily available. For infants on formula, please bring formula the day of surgery. Pacifiers are allowed. Take the following medications with a SIP of water the morning of surgery: __AMLODIPINE,BUPROPION ,CARBIDOPA-LEVODOPA,CLONAZEPAM,AND ESCITALOPRAM Medications to discontinue per physician __HOLD ASPIRIN 7 DAYS PRE OP PER DR REED. ALL VITAMINS AND SUPPLEMENTS 3 DAYS PRE OP Date to take last dose_ASPIRIN 06/02/22 ALL VIT/SUPP 06/06/22 Please no make-up, nail romansh, hairspray, perfume, deodorant, or body powder the day of surgery. No jewelry (including any body piercings) or valuables the day of surgery, leave them at home. Please take a shower or bath the night before, or the morning of, surgery with an antibacterial soap. Wear comfortable, loose fitting clothing. Children are encouraged to wear pajamas. - Jewelry must be removed prior to entering the operating room. Rings and piercings that are not removed may be cut off. - The hospital will not accept responsibility for valuables. - Please leave all valuables, including medications, at home the day of surgery. If you are going home after surgery, a licensed transport truck driver must drive you home. - NO public transportation without another adult if you receive anesthesia. - We recommend that an adult stay with you for 24 hours following discharge. - We also recommend that you do not drive, make important decision, drink alcoholic beverages, or take any drugs that were not prescribed by your health care provider for at least 24 hours after your discharge time. For Pediatric surgeries, we recommend two adults accompany the child home. Follow any additional instructions given to you from your surgeon. If you or anyone in your household have experienced Covid symptoms in the past week, please notify your surgeon or the nurse liaison at the phone number below for possible testing. Telephone instructions given to ___[facility]LIE and asked if any additional questions and then verbalized understanding. Patient advised to call surgeon office or pre surgery nurse liaison [phone] if any additional questions.
[2022-05-30 14:12] VITALS: BMI 30.5
--- NOTE | 2022-06-05 16:51 | PM.IMHP ---
H&P: HPI History of Present Illness Date/Time: 06/05/22 16:51 Chief Complaint: UUI Narrative: urge incontinence. Successful InterStim trial Review of Systems Review of Systems: All systems reviewed & are unremarkable except as noted in HPI and below [facility] Past Medical History Medical History Allergies Anxiety Dementia History of kidney stones Hyperlipidemia Hypertension Parkinson's disease Ulcer Surgical History Surgical History History of appendectomy History of carpal tunnel surgery Previous back surgery Status post implantation of urinary electronic stimulator device Family History Family History Father Asthma Heart disease Mother Depression Sibling Diabetes mellitus Hypertension Depression Grandparent Heart disease Social History Social History Smoking status: Never smoker Second hand tobacco smoke exposure: No Alcohol intake: never Substance use: never Substance use type: does not use Living arrangements: with family Spiritual care concerns: No Meds Home Medications and Allergies Home Medications Medication Instructions Recorded Confirmed Type aspirin 81 mg tablet,delayed 81 mg PO DAILY 09/08/21 05/30/22 History release (Adult Low Dose Aspirin) bupropion HCl 200 mg tablet,12 hr 200 mg PO DAILY 09/08/21 05/30/22 History sustained-release escitalopram oxalate 20 mg tablet 20 mg PO DAILY 09/08/21 05/30/22 History gabapentin 100 mg capsule 100 mg PO DAILY 09/08/21 05/30/22 History rosuvastatin 5 mg tablet 5 mg PO DAILY 09/08/21 05/30/22 History donepezil 10 mg tablet 10 mg PO HS 10/15/21 05/30/22 History multivitamin 1 tablet PO DAILY 10/15/21 05/30/22 History clonazepam 1 mg tablet 1 mg PO BID 02/14/22 05/30/22 History carbidopa 25 mg-levodopa 100 mg 2.5 tablet PO QID 03/16/22 05/30/22 History tablet amlodipine 10 mg tablet 10 mg PO DAILY 03/24/22 05/30/22 History fluticasone propionate 50 2 spray intranasal DAILY 05/30/22 05/30/22 History mcg/actuation nasal spray,suspension (Flonase Allergy Relief) polyethylene glycol 3350 17 17 g PO BID 05/30/22 05/30/22 History gram/dose oral powder (Miralax) Allergies Allergy/AdvReac Type Severity Reaction Status Date / Time No Known Allergies Allergy Verified 05/30/22 13:54 Exam Narrative: A+O c3 NAD Normal breathing Assessment and Plan Assessment and plan (1) Urge incontinence: Code(s): N39.41 - Urge incontinence Status: Acute Assessment and Plan: INterStim implant
--- NOTE | ~2022-06-10 | XR_ITS ---
EXAMINATION: XR fluoroscopy no charge DATE: 06/10/2022 09:00 INDICATION: Refractory urge incontinence. TECHNIQUE: 2 intraoperative spot fluoroscopic views of the pelvis were obtained. I was not present. F luoroscopy exposure time was 130 seconds. COMPARISON: CT abdomen and pelvis 11/12/2018 FINDINGS: There is an electrode in S3 neural foramen. There is no side marker on the images. IMPRESSION: 1. Electrode in S3 neural foramen. Reviewed, dictated and finalized at location A. L TILE LATHER
[2022-06-10 06:22] VITALS: BP 134/72; PULSE 66; RESP 20; TEMP 36.4; O2SAT 99
[2022-06-10] MEDS: LACTATED RINGERS 1,000 ML 30 ML IV CONT (06:55)
--- NOTE | 2022-06-10 07:09 | WPDHPUPDATE1 ---
History and Physical Update Update Date/Time: 06/10/22 07:09 History and Physical has been reviewed, including an updated exam of the patient. There are NO changes in the patient's condition. Risks, benefits, and alternatives have been discussed and questions answered. Patient agrees to proceed with procedure.
--- NOTE | 2022-06-10 07:46 | WPDANESEPPF ---
Anes - Initial Pre Proc Eval Procedure: Operation Date: 06/10/22 08:15 Proposed Procedures p Insertion Neurostimulator Phase 2 - Omer Snyder MD Date/Time: 06/10/22 07:46 Surgeon: Omer Snyder MD Pre Op Diagnosis: stress urinary incontinence Patient Data Age: 66 Gender: M Height: 1.8 m Weight: 102.4 kg Last Vital Signs Temp 36.4 C L 06/10/22 06:22 Pulse 66 06/10/22 06:22 Resp 20 06/10/22 06:22 BP 134/72 06/10/22 06:22 Pulse Ox 99 06/10/22 06:22 O2 Del Method Room Air 06/10/22 06:22 Allergies Allergy/AdvReac Type Severity Reaction Status Date / Time No Known Allergies Allergy Verified 06/10/22 06:45 Home Medications Medication Instructions Recorded Confirmed Type aspirin 81 mg tablet,delayed 81 mg PO DAILY 09/08/21 06/10/22 History release (Adult Low Dose Aspirin) bupropion HCl 200 mg tablet,12 hr 200 mg PO DAILY 09/08/21 06/10/22 History sustained-release escitalopram oxalate 20 mg tablet 20 mg PO DAILY 09/08/21 06/10/22 History gabapentin 100 mg capsule 100 mg PO DAILY 09/08/21 06/10/22 History rosuvastatin 5 mg tablet 5 mg PO DAILY 09/08/21 06/10/22 History donepezil 10 mg tablet 10 mg PO HS 10/15/21 06/10/22 History multivitamin 1 tablet PO DAILY 10/15/21 06/10/22 History clonazepam 1 mg tablet 1 mg PO BID 02/14/22 06/10/22 History carbidopa 25 mg-levodopa 100 mg 2.5 tablet PO QID 03/16/22 06/10/22 History tablet amlodipine 10 mg tablet 10 mg PO DAILY 03/24/22 06/10/22 History fluticasone propionate 50 2 spray intranasal DAILY 05/30/22 06/10/22 History mcg/actuation nasal spray,suspension (Flonase Allergy Relief) polyethylene glycol 3350 17 17 g PO BID 05/30/22 06/10/22 History gram/dose oral powder (Miralax) Patient hx anesthesia problems: none Family hx anesthesia problems: none Results Review: All pre-operative results and documents have been reviewed as part of the pre-operative evaluation. [facility] Past Medical History Medical History Allergies Anxiety Dementia History of kidney stones Hyperlipidemia Hypertension Parkinson's disease Ulcer Surgical History Surgical History History of appendectomy History of carpal tunnel surgery Previous back surgery Status post implantation of urinary electronic stimulator device Family History Family History Father Asthma Heart disease Mother Depression Sibling Diabetes mellitus Hypertension Depression Grandparent Heart disease Social History Social History Smoking status: Never smoker Second hand tobacco smoke exposure: No Alcohol intake: never Substance use: never Substance use type: does not use Living arrangements: with family Spiritual care concerns: No Anes - Eval Final PreProcedure Day of Procedure 06/10/22 07:46 Patient weight: obese Heart: regular rate and rhythm Lungs: clear to auscultation Airway: Mallampati scale class II Neurological: other (alert) Last oral intake: >/= 8 hours ASA classification: III Emergent: no Anesthetic plan: proceed Anesthesia type and monitoring: general LMA and standard monitoring Results Review: All pre-operative results and documents have been reviewed as part of the pre-operative evaluation. Informed Consent: The patient's anesthetic plan and its attendant risks and benefits were discussed with the patient/family/POA. Questions were solicited and answers provided to the satisfaction of the patient/family/POA.
[2022-06-10] MEDS: ceFAZolin 2 GM/D5W 50 ML 2 GM/50 ML BAG IVPB (08:23)
[2022-06-10] MEDS: ceFAZolin SODIUM 1 GM VIAL (08:34)
[2022-06-10 09:10] VITALS: BP 156/88; PULSE 67; RESP 16; O2SAT 98
--- NOTE | 2022-06-10 09:11 | W.PM.PROC2 ---
Procedure Note - Detailed Date of Procedure 06/10/22 Pre-op Diagnosis Urge urinary incontinence Post-op Diagnosis Same Procedure Performed Implantation of sacral lead 62006 Placement of implantable pulse generator 25712 Complex neurostimulator programming impedance check 37985 Surgeon Omer Snyder MD Anesthesia MAC and Local Indications This is a patient with refractory urge urinary incontinence. They have undergone a successful trial of sacral nerve stimulation. They present today for permanent implantation. They understand the risks of bleeding, infection, decreased efficacy, need for revision and battery changes. They agree to proceed Findings See dictated Description of Procedure They were correctly identified and informed consent was obtained. There brought to the operating room. There placed in the prone position. There given appropriate perioperative antibiotics. A time-out performed. I used fluoroscopy to neo out my sacral landmarks in the AP and the lateral orientation. I anesthetized the skin. I entered the S3 foramen. I monitored the needle with fluoroscopy. I got appropriate Mao and toe response at a low threshold. I made a skin altagracia. I placed a stylet. I placed the lead introducer sheath. I thinned placed and deployed to my lead. I got appropriate responses again at a low threshold. I marked out the site of the pulse generator. I anesthetized the skin and made that incision. I created a subcutaneous pocket to house the pulse generator. I tunneled the lead towards this pocket. Appropriate connections were made between the lead and the battery. It was placed in the pocket. It was programmed and impedances were checked and found to be normal. I irrigated out all wounds. I ensured hemostasis. I closed the subcutaneous tissues with 2 Vicryl. I closed the skin with 4 0 Vicryl. Glue was applied. There then awakened and transferred to the PACU in stable condition. Implants Sacral neurostimulator Estimated Blood Loss 5 Drains No Packing No Pathology None sent Complications No immediate complications Condition Stable Disposition PACU
[2022-06-10 09:40] VITALS: BP 174/100; PULSE 69; RESP 20
[2022-06-10 10:20] VITALS: BP 119/60; PULSE 72; RESP 20
[2022-06-10 10:40] VITALS: BP 116/66; PULSE 68; RESP 20
== END 2022-06-10 10:51 | disposition home or self-care (01) ==
PROVIDERS: PCP Internal Medicine; Visit Provider Urology
PROC: (CPT 64561; principal; 2022-06-10 08:15)
DX: N39.41 Urge incontinence (principal); I10 Essential (primary) hypertension; E78.5 Hyperlipidemia, unspecified; F02.80 Dementia in other diseases classified elsewhere, unspecified severity, without behavioral disturbance, psychotic disturbance, mood disturbance, and anxiety; F41.9 Anxiety disorder, unspecified; Z79.82 Long term (current) use of aspirin
CPT/HCPCS: 64561; 64590; 99199; C1767; C1778; C1787; J0690; J2704; J3010; J7120

== ENCOUNTER 2022-07-11 11:37 | Outpatient (RCR) | payer OTHER, SELFPAY ==
--- NOTE | 2022-07-11 12:28 | PTOPEVAL1 ---
Assessment and note entered by Miguel Vickers Evaluation Information Assessment Status Evaluation Diagnosis PD, low back pain Onset 07/11/21 Subjective Information Pt. reports that he has developed worsening back pain over the past year. He describes pain radiating across the low back. He states that pain radiates down both legs to the front and the back side. He reports that pain worsens with walking or standing for prolonged periods of time. He reports that he has difficulty with sleep, but not due his back pain and more due to acid reflux. He reports that he can stand for about 10 -15 minutes before having to sit due to pain. He reports that he is also concerned regarding the stiffness in his back and legs. he reports that his goal is to reduce his low back pain. Reported Pain Level Pain Score 5: Self Report Assessment PT Clinical Summary Pt. is a 66 year old male who enters the clinic with multiple diagnoses including low back pain and Parkinsons Disease. He presents with impaired strength, impaired gait, impaired flexibility, impaired postural awareness and pain. Continued treatment is indicated in order to improve these areas to allow the pt. to be able to complete all IADL's without complication. Plan of Care Interventions Gait Training,Hot Pack/Cold Pack,Manual Therapy, Neuro Re-education,Therapeutic Activities, Therapeutic Exercise,Self-Care/Home Management PT Services Indicated Yes Treatment Frequency and 2x/week x 10 visits Duration These treatments will address the objective and functional deficits as defined above. The patient will be advanced safely and appropriately in order for the patient to progress towards his/her prior level of function. Additional exercises will be introduced and as well as a comprehensive home exercise program upon discharge, if needed, ?to ensure carryover of functional gains achieved in the clinic. This treatment plan has been reviewed and agreement upon by the patient.
== END 2022-09-07 10:53 | disposition home or self-care (01) ==
LOC: CHSPT 11:37
DX: G20 Parkinson's disease (principal); M54.42 Lumbago with sciatica, left side; M54.41 Lumbago with sciatica, right side; G89.29 Other chronic pain
CPT/HCPCS: 97110; 97112; 97140; 97161; 97530; 97750

== ENCOUNTER 2022-09-26 07:32 | Outpatient (CLI) | payer OTHER, SELFPAY ==
--- NOTE | ~2022-09-26 | US_ITS ---
EXAMINATION: US abdomen complete DATE: 09/26/2022 08:07 INDICATION: Abdominal pain TECHNIQUE: Multiple grayscale and Doppler ultrasound images of the abdomen were obtained. COMPARISON: None available FINDINGS: Bowel gas obscures visualization of the pancreas. The visualized portions of the pancreas a re unremarkable. The liver is normal with normal echogenicity and echotexture. No surface nodularity. Normal hepatopetal flow in the main portal vein. The gallbladder is normal with no abnormal wall thi ckening, pericholecystic fluid or stones. The normal common bile duct measures 4 mm. There was no son ographic Reece sign. The visualized portions of the aorta and inferior vena cava are normal. The spleen is normal in appearance and measures 9.2 cm. The right kidney measures 12.9 x 4.7 x 5.8 cm . The left kidney measures 10.6 x 5.3 x 6.2 cm. The kidneys demonstrate normal parenchymal echogenici ty. There is no hydronephrosis. IMPRESSION: 1. No sonographic correlate for the patient's symptoms. Reviewed, dictated and finalized at location B.
== END 2022-09-26 07:33 | disposition home or self-care (01) ==
LOC: CHSIMG 07:35
PROVIDERS: PCP Internal Medicine; Visit Provider Internal Medicine
DX: R10.84 Generalized abdominal pain (principal)
CPT/HCPCS: 76700

== ENCOUNTER 2022-11-04 07:50 | Outpatient (CLI) | payer OTHER, SELFPAY ==
[2022-11-04 08:09] LABS: Appearance Urine Clear (Clear); Basophils Absolute Auto 0.05 K/mm3 (0.00-0.10); Basophils Percent Auto 0.7 % (0.0-1.0); Bilirubin Urine Negative (Negative); Blood Urine Negative (Negative); Color Urine Yellow (Yellow); Eosinophils Absolute Auto 0.06 K/mm3 (0.02-0.50); Eosinophils Percent Auto 0.9 % (1.0-6.0); Glucose Urine UA Negative (Negative); Hematocrit 49.5 % (37.0-46.0); Hemoglobin 16.2 g/dL (12.4-15.3); Immature Granulocyte Absolute 0.02 K/mm3 (0.00-0.00); Immature Granulocyte Percent A 0.3 % (0.0-0.0); Ketones Urine Trace (Negative); Leukocyte Esterase Ur Negative (Negative); Lymphocytes Absolute Auto 1.43 K/mm3 (1.10-4.50); Lymphocytes Percent Auto 20.8 % (18.0-42.0); Mean Corpuscular HGB Conc 32.7 g/dL (32.0-36.0); Mean Corpuscular Hemoglobin 31.9 pg (27.0-31.0); Mean Corpuscular Volume 97.4 fL (78.0-102.0); Monocytes Absolute Auto 0.45 K/mm3 (0.10-0.90); Monocytes Percent Auto 6.5 % (2.0-11.0); Neutrophils Absolute Auto 4.9 K/mm3 (1.7-7.2); Neutrophils Percent Auto 70.8 % (50.0-70.0); Nitrate Urine Negative (Negative); Platelet Count Result 283 K/mm3 (150-420); Protein Urine Negative (Negative); Red Blood Count 5.08 M/mm3 (4.70-6.10); Red Cell Distribution Width 12.6 % (11.6-14.4); Specific Grav Ur 1.025 (1.010-1.020); Urobilinogen Urine >=8.0 mg/dL (0.2-1.0); White Blood Count 6.9 K/mm3 (4.8-10.8)
[2022-11-04 08:14] LABS: Add Urine Microscopic? YES; Bacteria Urine Rare /hpf; RBC Urine None seen /hpf (0-2); WBC Urine None seen /hpf (0-3)
[2022-11-04 08:17] LABS: Creatinine Urine 153.93 mg/dL (40-278); MALB Creatinine Ratio 8.4 mg/g (0-30); Microalbumin Urine Random < 13.0 mg/L
[2022-11-04 09:01] LABS: Alanine Aminotransferase 22 U/L (16-63); Albumin Level 4.4 g/dL (3.4-5.0); Alkaline Phosphatase 75 U/L (46-116); Anion Gap 9 mmol/L (8-16); Aspartate Amino Transferase 31 U/L (15-37); Bilirubin,Total 0.9 mg/dL (0.00-1.00); Blood Urea Nitrogen 21 mg/dL (7-18); Calcium 9.4 mg/dL (8.5-10.1); Carbon Dioxide 31 mmol/L (21-32); Chloride 102 mmol/L (98-108); Cholesterol 185 mg/dL (0-200); Creatine Kinase 204 U/L (39-308); Estimated Glomerular Filt Rate > 60; Glucose 92 mg/dL (70-99); HDL Direct 106 mg/dL (40-60); LDL Cholesterol Calculated 70 mg/dL (<130); Osmolality Calculated 297 mOsm/kg (285-295); Potassium 4.5 mmol/L (3.5-5.1); Sodium 142 mmol/L (136-145); Total Protein 7.2 g/dL (6.4-8.2); Triglycerides 43 mg/dL (0-150); Vitamin B12 706 pg/mL (193-986)
== END 2022-11-04 07:51 | disposition home or self-care (01) ==
PROVIDERS: PCP Internal Medicine; Visit Provider Internal Medicine
DX: I10 Essential (primary) hypertension (principal); E78.2 Mixed hyperlipidemia; G31.84 Mild cognitive impairment of uncertain or unknown etiology; J32.4 Chronic pansinusitis
CPT/HCPCS: 36415; 80053; 80061; 81001; 82043; 82550; 82607; 85025

== ENCOUNTER 2022-11-16 11:52 | Outpatient (CLI) | payer OTHER, SELFPAY ==
--- NOTE | ~2022-11-16 | XR_ITS ---
AP and oblique views of the SI joints CLINICAL HISTORY: Chronic pain FINDINGS: Bilateral SI joints are intact. Bilateral hip joints are intact. Neurostimulator device pre sent. Soft tissues are unremarkable. There is degenerative spondylosis of the lower lumbar spine. IMPRESSION: Unremarkable SI and hip joints. Degenerative spondylosis of the lower lumbar spine. Neurostimulator device present. Reviewed, dictated and finalized at location .
--- NOTE | ~2022-11-16 | XR_ITS ---
Lumbosacral Spine: AP and lateral views Clinical History: Pain COMPARISON: 04/16/2013 Findings: The normal lordotic curve is maintained. No acute fracture seen. 3 mm retrolisthesis of L3 over L4 present. There is advanced degenerative disc narrowing at L3-L4, L4-L5 and L5-S1. There is ad vanced facet arthropathy at L4-L5 and L5-S1. There are mild degenerative disc changes and facet degen erative changes at the remaining lumbar levels. The sacroiliac joints are normally outlined. Impression: Moderate to advanced degenerative spondylosis, as detailed above. 3 mm retrolisthesis of L3 over L4. Reviewed, dictated and finalized at location M. Impression: Moderate to advanced degenerative spondylosis, as detailed above. 3 mm retrolisthesis of L3 over L4.
== END 2022-11-16 11:53 | disposition home or self-care (01) ==
LOC: CHSIMG 11:54
PROVIDERS: PCP Internal Medicine; Visit Provider Internal Medicine
DX: M54.50 Low back pain, unspecified (principal); M43.06 Spondylolysis, lumbar region
CPT/HCPCS: 72100; 72202

== ENCOUNTER 2022-11-22 13:38 | Outpatient (CLI) | payer OTHER, SELFPAY ==
--- NOTE | ~2022-11-22 | CT_ITS ---
EXAMINATION: CT lumbar spine wo con DATE: 11/22/2022 14:16 INDICATION: Neurogenic claudication. Lumbar canal stenosis. TECHNIQUE: Computed tomography (CT) of the lumbar spine was performed without intravenous contrast. A utomated exposure control and iterative reconstruction technique were employed. The dose-length produ ct was 2981.56 mGy-cm. COMPARISON: Lumbar spine radiographs 05/19/2023 FINDINGS: There is 6 degrees dextrocurvature of thoracolumbar spine. There is 5 mm retrolisthesis of L3 on L4. There is mild chronic anterior wedging of T12-L2 vertebral bodies, likely physiologic. Ther e is severely decreased disc height at T11-T12 and T12-L1, mildly decreased disc height at L1-L2 and L2-L3, and severely decreased disc height from L3-L4 through L5-S1 with endplate remodeling. There is an electrode in the right S4 neural foramen. The following disc levels are specifically discussed: T12-L1: The disc is bulging. There is moderate right and mild left facet joint osteoarthritis. There is mild bilateral neural foraminal stenosis. There is mild central canal stenosis. L1-L2: The disc is bulging. There is mild bilateral facet joint osteoarthritis. There is mild bilater al neural foraminal stenosis. There is mild central canal stenosis. L2-L3: The disc is bulging. There is mild bilateral facet joint osteoarthritis. There is moderate bouchra ateral neural foraminal stenosis. There is mild central canal stenosis. L3-L4: The disc is bulging. There is mild bilateral facet joint osteoarthritis. There is moderate bouchra ateral neural foraminal stenosis. There is mild central canal stenosis. L4-L5: The disc is bulging. There is mild bilateral facet joint osteoarthritis. There is moderate bouchra ateral neural foraminal stenosis. There is mild central canal stenosis with posterior decompression. L5-S1: The disc is bulging. There is mild bilateral facet joint osteoarthritis. There is moderate bouchra ateral neural foraminal stenosis. There is mild central canal stenosis with posterior decompression. There is a chronic right L5 pars defect. IMPRESSION: 1. Severe lumbar spondylosis. Reviewed, dictated and finalized at location L.
== END 2022-11-22 13:39 | disposition home or self-care (01) ==
LOC: CHSIMG 13:40
PROVIDERS: PCP Internal Medicine; Visit Provider Internal Medicine
DX: M48.062 Spinal stenosis, lumbar region with neurogenic claudication (principal); M43.06 Spondylolysis, lumbar region
CPT/HCPCS: 72131

== ENCOUNTER 2023-05-29 10:59 | Outpatient (CLI) | payer OTHER, SELFPAY ==
--- NOTE | ~2023-05-29 | NM_ITS ---
EXAMINATION: NM hepatobiliary w pharm DATE: 05/29/2023 14:12 INDICATION: Biliary dyskinesia COMPARISON: None. TECHNIQUE: 4.6 mCi Tc-99m mebrofenin (Choletec) was administered intravenously. Scintigraphic images of the abdomen were obtained for one hour. 2.1 mcg sincalide (Kinevac) was administered by slow intr avenous infusion, and imaging was continued for 60 minutes. Gallbladder ejection fraction was calcula franci by the technologist. FINDINGS: There is normal clearance of radiotracer from the blood pool. There is homogeneous tracer uptake by t he liver. Activity progresses to the gallbladder and bowel. The gallbladder ejection fraction (GBEF) is 52% (normal 10-90%, but most patient with gallbladder dysfunction have GBEF < 35% which does over lap with the normal range). IMPRESSION: 1. Normal hepatobiliary scan Reviewed, dictated and finalized at location A. RAFT INSTRUMENT REPAIRER
== END 2023-05-29 11:00 | disposition home or self-care (01) ==
LOC: CHSIMG 11:00
PROVIDERS: PCP Internal Medicine; Visit Provider Internal Medicine
DX: K82.8 Other specified diseases of gallbladder (principal)
CPT/HCPCS: 78227; A9537; J2805

== ENCOUNTER 2023-06-08 16:02 | Outpatient (CLI) | payer OTHER, SELFPAY ==
--- NOTE | ~2023-06-08 | XR_ITS ---
EXAMINATION: XR lumbar spine min 4V DATE: 06/08/2023 16:20 INDICATION: Spondylosis without myelopathy or radiculopathy TECHNIQUE: Anteroposterior and lateral in neutral, flexion and extension views of the lumbar spine an d cone-down lateral view of the lumbosacral junction were obtained. COMPARISON: CT dated 11/22/2022 FINDINGS: 8 degree upper lumbar dextrocurvature. L4 and L5 laminectomies. 4-5 mm retrolisthesis L3 on L4 and 2- 3 mm retrolisthesis L2 on L3 which are without appreciable interval change with flexion or extension. Chronic mild anterior wedging at L2, minimal at L1. Mild disc height loss at L1-L2 and L2-L3 and mod erate to severe disc height loss at remaining levels from T11-T12 through L5-S1. Right-sided sacral n erve root stimulator extending through the right S1 neural foramen. Mild bilateral sacroiliac osteoar thritis. IMPRESSION: 1. Mild lumbar dextrocurvature with moderate to severe lumbar spondylosis. 2. 4-5 mm retrolisthesis L3 on L4 and 2-3 mm retrolisthesis L2 on L3 which are without appreciable in terval change with flexion or extension. 3. Postoperative change of prior L4 and L5 laminectomies and right sacral nerve root stimulator exten ding through the right S4 neural foramen. Reviewed, dictated and finalized at location A. AD DRESSER IMPRESSION: 1. Mild lumbar dextrocurvature with moderate to severe lumbar spondylosis. 2. 4-5 mm retrolisthesis L3 on L4 and 2-3 mm retrolisthesis L2 on L3 which are without appreciable interval change with flexion or extension. 3. Postoperative change of prior L4 and L5 laminectomies and right sacral nerve root stimulator extending through the right S4 neural foramen.
== END 2023-06-08 16:03 | disposition home or self-care (01) ==
LOC: ANHIMG 16:04
PROVIDERS: PCP Internal Medicine; Visit Provider Neurological Surgery
DX: M47.816 Spondylosis without myelopathy or radiculopathy, lumbar region (principal)
CPT/HCPCS: 72110

== ENCOUNTER 2023-11-13 07:16 | Outpatient (CLI) | payer OTHER, SELFPAY ==
[2023-11-13 08:15] LABS: Basophils Absolute Auto 0.05 K/mm3 (0.00-0.10); Basophils Percent Auto 0.7 % (0.0-1.0); Eosinophils Absolute Auto 0.17 K/mm3 (0.02-0.50); Eosinophils Percent Auto 2.3 % (1.0-6.0); Hematocrit 50.3 % (37.0-46.0); Immature Granulocyte Absolute 0.03 K/mm3 (0.00-0.00); Immature Granulocyte Percent A 0.4 % (0.0-0.0); Lymphocytes Absolute Auto 1.17 K/mm3 (1.10-4.50); Lymphocytes Percent Auto 15.6 % (18.0-42.0); Mean Corpuscular HGB Conc 31.8 g/dL (32-36); Mean Corpuscular Hemoglobin 31.1 pg (27.0-31.0); Mean Corpuscular Volume 97.9 fL (78.0-102.0); Mean Platelet Volume 10.8 fl (8.7-11.0); Monocytes Absolute Auto 0.48 K/mm3 (0.10-0.90); Monocytes Percent Auto 6.4 % (2.0-11.0); Neutrophils Absolute Auto 5.62 K/mm3 (1.70-7.20); Neutrophils Percent Auto 74.6 % (50.0-70.0); Platelet Count Result 265 K/mm3 (150-420); Red Blood Count 5.14 M/mm3 (4.70-6.10); Red Cell Distribution Width 12.5 % (11.6-14.4); White Blood Count 7.5 K/mm3 (4.8-10.8)
[2023-11-13 09:15] LABS: Appearance Urine Sl Cloudy (Clear); Bilirubin Urine Negative (Negative); Blood Urine Negative (Negative); Color Urine Dark Yellow (Yellow); Glucose Urine UA Negative (Negative); Ketones Urine Trace (Negative); Leukocyte Esterase Ur Negative LEU/UL (Negative); Nitrate Urine Negative (Negative); Protein Urine Negative (Negative)
[2023-11-13 10:12] LABS: Add Urine Microscopic? YES; Bacteria Urine Trace /hpf; Mucus Urine Moderate /lpf; RBC Urine 0-2 /hpf (0-2); Squamous Epithelial Cell Urine Rare /hpf (Few); WBC Urine 0-3 /hpf (0-3)
[2023-11-13 22:55] LABS: Hemoglobin A1C 5.1 % (<5.7)
[2023-11-13 23:12] LABS: Alanine Aminotransferase 25 U/L (16-63); Albumin Level 4.3 g/dL (3.4-5.0); Alkaline Phosphatase 79 U/L (46-116); Anion Gap 10 mmol/L (4-12); Aspartate Amino Transferase 18 U/L (15-37); Blood Urea Nitrogen 18 mg/dL (7-18); Calcium 9.1 mg/dL (8.5-10.1); Carbon Dioxide 28 mmol/L (21-32); Chloride 100 mmol/L (98-108); Cholesterol 175 mg/dL (0-200); Creatine Kinase 144 U/L (39-308); Estimated Glomerular Filt Rate > 60; Glucose 82 mg/dL (70-99); HDL Direct 94 mg/dL (40-60); LDL Cholesterol Calculated 70 mg/dL (<130); Osmolality Calculated 286 mOsm/kg (285-295); Potassium 4.8 mmol/L (3.5-5.1); Sodium 138 mmol/L (136-145); Total Protein 6.9 g/dL (6.4-8.2); Triglycerides 53 mg/dL (0-150)
[2023-11-14] LABS: Creatinine Urine 247.26 mg/dL (40-278); MALB Creatinine Ratio 7.1 mg/g (0-30); Microalbumin Urine Random 17.7 mg/L
== END 2023-11-13 07:17 | disposition home or self-care (01) ==
LOC: CHSLAB 07:17
PROVIDERS: PCP Internal Medicine; Visit Provider Internal Medicine
DX: N39.0 Urinary tract infection, site not specified (principal); I10 Essential (primary) hypertension; E78.2 Mixed hyperlipidemia; R73.01 Impaired fasting glucose
CPT/HCPCS: 36415; 80053; 80061; 81001; 82043; 82550; 83036; 85025

== ENCOUNTER 2023-12-27 10:51 | Outpatient (CLI) | payer OTHER, SELFPAY ==
--- NOTE | 2023-12-27 | ECG_ITS ---
Test Date: 2023-12-27 12:13:33 Measurements Intervals [place] Rate: 65 P: 11 RI: 354 QRS: -12 QRSD: 114 T: -4 QT: 397 QTc: 415 Interpretive Statements SINUS RHYTHM INTRAVENTRICULAR CONDUCTION DELAY DELAYED PRECORDIAL R/S TRANSITION VOLTAGE CRITERIA FOR LVH BORDERLINE ST-T WAVE ABNORMALITY- INFERIOR LEADS BORDERLINE ECG No previous ECG available for comparison Electronically Signed On 12-27-2023 15:03:20 CDT by Ronnie Martines D.O.
[2023-12-27 11:38] LABS: Appearance Urine Clear (Clear); Bilirubin Urine Negative (Negative); Blood Urine Negative (Negative); Color Urine Yellow (Yellow); Glucose Urine UA Negative (Negative); Ketones Urine Trace mg/dL (Negative); Leukocyte Esterase Ur Negative LEU/UL (Negative); Nitrate Urine Negative (Negative); Protein Urine Negative (Negative); Specific Grav Ur 1.022 (1.001-1.035); pH Urine 5.5 (5.0-9.0)
[2023-12-27 11:46] LABS: Add Urine Microscopic? NO
[2023-12-27 11:49] LABS: Basophils Absolute Auto 0.1 K/mm3 (0.0-0.1); Basophils Percent Auto 0.9 % (0.2-1.2); Eosinophils Absolute Auto 0.3 K/mm3 (0-0.3); Eosinophils Percent Auto 3.3 % (0-4.4); Hematocrit 47.2 % (42.0-52.0); Hemoglobin 15.6 g/dL (14.0-18.0); Immature Granulocyte Absolute 0.03 K/mm3 (0.00-0.031); Immature Granulocyte Percent A 0.4 % (0-0.5); Lymphocytes Percent Auto 21.9 % (18.3-44.2); Mean Corpuscular HGB Conc 33.1 g/dl (32-36); Mean Corpuscular Hemoglobin 32.3 pg (26-34); Mean Corpuscular Volume 97.7 fl (80-100); Mean Platelet Volume 10.6 fl (7.4-10.4); Monocytes Absolute Auto 0.7 K/mm3 (0.1-0.6); Monocytes Percent Auto 9.5 % (2.6-8.5); Platelet Count Result 269 k/mm3 (150-375); Red Blood Count 4.83 M/mm3 (4.6-6.20); Red Cell Distribution Width 12.9 % (11.5-14.5); White Blood Count 7.8 K/mm3 (4.5-10.0)
[2023-12-27 12:06] LABS: Albumin Level 4.6 g/dL (3.5-5.1); Alkaline Phosphatase 71 U/L (38-126); Anion Gap 5 mmol/L (4-12); Aspartate Amino Transferase 27 U/L (17-59); Bilirubin,Total 0.8 mg/dL (0.2-1.3); Blood Urea Nitrogen 24 mg/dL (9-20); CRP 0.7 mg/dL (<1.0); Calcium 9.1 mg/dL (8.4-10.2); Carbon Dioxide 30 mmol/L (22-30); Chloride 105 mmol/L (98-107); Estimated Glomerular Filt Rate > 60; Glucose 63 mg/dL (65-110); Potassium 4.4 mmol/L (3.4-5.0); Sodium 140 mmol/L (137-145)
[2023-12-27 12:14] LABS: Alanine Aminotransferase < 6 U/L (6-50)
[2023-12-27 12:20] LABS: Erythrocyte Sedimentation Rate 8 mm/hr (0-20)
== END 2023-12-27 10:52 | disposition home or self-care (01) ==
LOC: ANHLAB 10:56
PROVIDERS: PCP Internal Medicine; Visit Provider Nurse Practitioner Family
DX: Z01.818 Encounter for other preprocedural examination (principal); I45.9 Conduction disorder, unspecified; R94.31 Abnormal electrocardiogram [ECG] [EKG]
CPT/HCPCS: 36415; 80053; 81003; 85025; 85652; 86140; 93005

== ENCOUNTER 2024-06-13 09:21 | Emergency (ER) | payer OTHER, SELFPAY ==
--- NOTE | ~2024-06-13 | XR_ITS ---
XR hip RT 2V w AP pelvis 06/13/2024 09:51 Indication: Right hip pain Procedure: AP pelvis and 2 views right hip Comparison: 11/16/2022 Findings: Pelvic rings intact. Transsacral stimulator lead is present. Lower lumbar spondylosis parti ally visualized. Mild osteoarthritis of hips. No fracture or traumatic malalignment. No focal lytic o r blastic lesions. Impression: 1: Mild osteoarthritis of the hips. Reviewed, dictated and finalized at location B. DRILLER Impression: 1: Mild osteoarthritis of the hips.
[2024-06-13 09:22] VITALS: BP 161/84; PULSE 81; RESP 18; TEMP 36.7; O2SAT 95
[2024-06-13] MEDS: KETOROLAC 30 MG/ML VIAL (*BKC) IM (10:10)
--- NOTE | 2024-06-13 10:18 | ED_ITS ---
HPI - Extremity Injury (Lower) General Chief Complaint: Extremity Injury, Lower Stated Complaint: R hip injury Time Seen by Provider: 06/13/24 09:27 Source: patient and family Mode of arrival: wheelchair Limitations: no limitations History of Present Illness HPI Narrative: this is a 68-year-old male that presents after he planted his foot to pivot and heard a pop in his right hip area has good range of motion although little tender there is some tenderness in the lateral aspect of his right hip with palpation has good pulses. The patient did not take any type of pain medication or anti-inflammatory medication prior to arrival to the ER. complaint: hip injury Onset (ago): hour(s) Injury: Right: hip ( twisted nontender) Type of Injury: inversion Severity: mild Severity scale (1-10): 2 Exacerbating factors: weight bearing and movement Related Data Home Medications ?Medication ?Instructions ?Recorded ?Confirmed ?Last Taken ?Type aspirin 81 mg tablet,delayed 81 mg PO DAILY 09/08/21 06/13/24 06/03/22 History release (Adult Low Dose Aspirin) bupropion HCl 200 mg tablet,12 hr 200 mg PO DAILY 09/08/21 06/13/24 06/10/22 04:50 History sustained-release escitalopram oxalate 20 mg tablet 20 mg PO DAILY 09/08/21 06/13/24 06/10/22 04:50 History rosuvastatin 5 mg tablet 5 mg PO DAILY 09/08/21 06/13/24 06/09/22 History donepezil 10 mg tablet 10 mg PO HS 10/15/21 06/13/24 06/09/22 History multivitamin 1 tablet PO DAILY 10/15/21 06/13/24 06/03/22 History amlodipine 10 mg tablet 10 mg PO DAILY 03/24/22 06/13/24 06/10/22 04:50 History polyethylene glycol 3350 17 17 g PO BID 05/30/22 06/13/24 06/09/22 History gram/dose oral powder (Miralax) clonazepam 1 mg tablet 1 mg PO BID 06/08/23 06/13/24 Unknown History gabapentin 100 mg capsule 100 mg PO TID 06/08/23 06/13/24 Unknown History carbidopa 25 mg-levodopa 100 mg 3.5 tablet PO QID 08/24/23 06/13/24 Unknown History tablet carbidopa ER 50 mg-levodopa 200 mg 1 tablet PO BID 08/24/23 06/13/24 Unknown History tablet,extended release Allergies Allergy/AdvReac Type Severity Reaction Status Date / Time No Known Allergies Allergy Verified 06/13/24 09:28 Review of Systems Review of Systems: All systems reviewed & are unremarkable except as noted in HPI and below PMFSH Past Medical History Medical History Dementia History of kidney stones Hyperlipidemia Parkinson's disease Ulcer Hypertension Anxiety Allergies Surgical History Surgical History Status post implantation of urinary electronic stimulator device History of carpal tunnel surgery History of appendectomy Previous back surgery Family History Family History Father Asthma Heart disease Mother Depression Sibling Diabetes mellitus Hypertension Depression Grandparent Heart disease Social History Social History Smoking status: Never smoker Second hand tobacco smoke exposure: No Alcohol intake: never Substance use: never Substance use type: does not use Do You Feel Safe in your Home?: Yes Lack of Transportation: No Lack of Food: Never True Current Housing: I Have Housing Concerned About Future Housing: No Difficulty Paying Gas/Electric Bills: No Difficulty Paying for Meds: No Currently Unemployed: No Education: High School Diploma/GED Difficulty w/ Childcare or Family Care: No Living arrangements: with family Spiritual care concerns: No Exam Const: General: healthy appearing Nutritional Appearance: well nourished Orientation/consciousness: patient oriented x3 Limitations: no limitations Resp: Effort & Inspection: normal respiratory effort Auscultation: clear to auscultation bilaterally Cardio: Rate: regular rate Rhythm: regular rhythm GI: GI Palp: Yes Soft to palpation Auscultation: normal bowel sounds Neuro: General: patient oriented x3 and moves all extremities Extrem: Other: Tender lateral hip with movement palpation Course Course Emergency Course: patient had an x-ray performed which shows no acute fractures, patient received 30mg IM Toradol that has relieved his discomfort after assessment. Vital Signs Vital signs: Vital Signs Temperature 36.7 C 06/13/24 09:22 Pulse Rate 81 06/13/24 09:22 Respiratory Rate 18 06/13/24 09:22 Blood Pressure 161/84 H 06/13/24 09:22 Pulse Oximetry 95 06/13/24 09:22 Oxygen Delivery Room Air 06/13/24 09:22 Temperature 36.7 C 06/13/24 09:22 Pulse Rate 81 06/13/24 09:22 Respiratory Rate 18 06/13/24 09:22 Blood Pressure 161/84 H 06/13/24 09:22 Pulse Oximetry 95 06/13/24 09:22 Oxygen Delivery Room Air 06/13/24 09:22 Critical Care Time Critical Care Time Critical Care Time: No Discharge Plan Discharge Clinical Impression: Strain of hip Qualifiers: Encounter type: initial encounter Laterality: right Qualified Code(s): S76.011A - Strain of muscle, fascia and tendon of right hip, initial encounter Patient Disposition: Home, Self-Care Condition: Stable Instructions: Antibiotic Form, Muscle Strain (ED) Additional Instructions: advised to take medication as prescribed and follow with primary within 1 week for further evaluation and treatment. Patient Language: Wolof Prescriptions: New naproxen 500 mg tablet 500 mg PO BID PRN (Reason: pain) Qty: 14 0RF No Action amlodipine 10 mg Tablet 10 mg PO DAILY bupropion HCl 200 mg tablet sustained-release 12 hr 200 mg PO DAILY Patient Comments: TAKES BID escitalopram oxalate 20 mg tablet 20 mg PO DAILY rosuvastatin 5 mg tablet 5 mg PO DAILY aspirin [Adult Low Dose Aspirin] 81 mg tablet,delayed release (DR/EC) 81 mg PO DAILY gabapentin 100 mg capsule 100 mg PO TID Patient Comments: TAKES 300 MG AT HS carbidopa-levodopa 25-100 mg tablet 3.5 tablet PO QID Patient Comments: TAKES 3 TABLET QID clonazepam 1 mg tablet 1 mg PO BID carbidopa-levodopa 50-200 mg tablet extended release 1 tablet PO BID multivitamin Tablet 1 tablet PO DAILY donepezil 10 mg Tablet 10 mg PO HS polyethylene glycol 3350 [Miralax] 17 gram/dose Powder 17 g PO BID Follow-up/Referrals: Kayla Ulloa MD [Primary Care Provider] -
== END 2024-06-13 10:45 | disposition home or self-care (01) ==
PROVIDERS: Emergency Provider Emergency Medicine; PCP Internal Medicine
DX: S76.011A Strain of muscle, fascia and tendon of right hip, initial encounter (principal); G20.A1 Parkinson's disease without dyskinesia, without mention of fluctuations; F02.80 Dementia in other diseases classified elsewhere, unspecified severity, without behavioral disturbance, psychotic disturbance, mood disturbance, and anxiety; I10 Essential (primary) hypertension; E78.5 Hyperlipidemia, unspecified; Z79.82 Long term (current) use of aspirin; Z79.899 Other long term (current) drug therapy; X50.0XXA Overexertion from strenuous movement or load, initial encounter
CPT/HCPCS: 73502; 96372; 99283; J1885

== ENCOUNTER 2024-07-03 14:48 | Outpatient (CLI) | payer OTHER, SELFPAY ==
--- NOTE | ~2024-07-03 | XR_ITS ---
XR knee RT 3V Ordering provider: Kayla Ulloa MD History: . Injury R knee-TWISTED,GENERAL PAIN . Comparison: None. FINDINGS: BONES: No acute fracture or dislocation. JOINT SPACES: Normal. SOFT TISSUES: Normal. IMPRESSION: No acute osseous abnormality right knee. Reviewed, dictated and finalized at location A. EN AND CYCLONE REPAIRER
== END 2024-07-03 14:49 | disposition home or self-care (01) ==
PROVIDERS: PCP Internal Medicine; Visit Provider Internal Medicine
DX: S89.91XA Unspecified injury of right lower leg, initial encounter (principal)
CPT/HCPCS: 73562

== ENCOUNTER 2024-09-12 10:47 | Outpatient (RCR) | payer OTHER, SELFPAY ==
--- NOTE | 2024-09-12 12:00 | OPREHPOC ---
Outpatient Therapy Plan of Care This is a Multidisciplinary Plan of Care that may contain components documented by all disciplines (PT, OT, and ST.) PT Problem 1 PT Problem #1 Knowledge Deficit PT Goal 1 Goal / Goal Update Independent with HEP. Target Visit 5 PT Problem 2 PT Problem #2 Pain PT Goal 1 Goal / Goal Update Pt to report no more than 2/10 R knee pain at rest . Pt to report no more than 4/10 R knee pain with activity. Target Visit 10 PT Problem 3 PT Problem #3 Impaired Range of Motion PT Goal 1 Goal / Goal Update Pt to reach full R knee extension. Pt to reach 130 degrees of active R knee flexion. Target Visit 10 PT Problem 4 PT Problem #4 Impaired Functional Mobility PT Goal 1 Goal / Goal Update Pt to report less than 30% disability on LEFS questionnaire. Target Visit 10
--- NOTE | 2024-09-12 12:00 | PTOPEVAL1 ---
Assessment and note entered by Lisette Dao, PT Evaluation Information Assessment Status Evaluation ICD-10 Condition Codes (PT) Pain in right knee M25.561 Onset 07/15/24 Subjective Information Pt reports onset of knee pain around two months ago when he was walking at home and his knee twisted. Pain is on the front and outside of his knee. Pain is increased by standing and walking, getting up out of a chair, and going up stairs. He has been wearing a knee brace to help relieve pain. He states he got an x-ray and MRI of the knee that indicated a meniscus tear, and that he was sent to therapy to get stronger. He states if therapy doesn't help then he'll need to get laparoscopic surgery or a knee replacement. He also has a history of low back surgery and has a stimulator in his back. He also has Parkinson disease and reports having a few stumbles recently due to imbalance. Reported Pain Level Pain Score 5: Self Report Assessment PT Clinical Summary Mr. Cuevas is a 69 yo male who enters the clinic for R knee pain due to suspected meniscus tear. He demonstrates aching R knee pain that is located on the anterolateral surface of the knee near the joint line, and pain is aggravated by walking, getting out of a chair, performing stairs, and with end range flexion and extension. He also demonstrates weakness of the R leg compared to the L and positive McMurrays test, indicating possible lateral meniscus involvement. Plan of Care Interventions Electrical Stimulation,Gait Training,Hot Pack/Cold Pack,Manual Therapy,Neuro Re-education,Patient/ Caregiver Education,Therapeutic Activities, Therapeutic Exercise PT Services Indicated Yes Treatment Frequency and 2x/week for 10 visits Duration These treatments will address the objective and functional deficits as defined above. The patient will be advanced safely and appropriately in order for the patient to progress towards his/her prior level of function. Additional exercises will be introduced and as well as a comprehensive home exercise program upon discharge, if needed, ?to ensure carryover of functional gains achieved in the clinic. This treatment plan has been reviewed and agreement upon by the patient.
--- NOTE | 2024-10-15 11:52 | OPREHPOC ---
Outpatient Therapy Plan of Care This is a Multidisciplinary Plan of Care that may contain components documented by all disciplines (PT, OT, and ST.) PT Problem 1 PT Problem #1 Knowledge Deficit PT Goal 1 Goal / Goal Update Independent with HEP. Target Visit 5 Progress Met PT Problem 2 PT Problem #2 Pain PT Goal 1 Goal / Goal Update Pt to report no more than 2/10 R knee pain at rest . Pt to report no more than 4/10 R knee pain with activity. Target Visit 10 Progress Met PT Problem 3 PT Problem #3 Impaired Range of Motion PT Goal 1 Goal / Goal Update Pt to reach full R knee extension. met Pt to reach 130 degrees of active R knee flexion. not met Target Visit 16 Progress Partially Met PT Problem 4 PT Problem #4 Impaired Functional Mobility PT Goal 1 Goal / Goal Update Pt to report less than 30% disability on LEFS questionnaire. not met Target Visit 16 Progress Not Met PT Goal 2 Goal / Goal Update 4+/5 or better bilateral hip strength overall Target Visit 16 PT Problem 5 PT Problem #5 Impaired Balance PT Goal 1 Goal / Goal Update patient to display 22/28 or better per the tinetti patient to report no falls in the last 3 weeks patient to display ability to hold small tandem stance without LOB for 30 seconds or more patient to display 12 seconds or less to complete TUG safely patient to display 10 seconds or less to complete 5 x sit to stand safely Target Visit 16
--- NOTE | 2024-10-15 11:53 | PTOPREEVAL ---
Assessment and note entered by JT File, PT Evaluation Information Assessment Status Re-evaluation ICD-10 Condition Codes (PT) Pain in right knee M25.561,Repeated falls R29.6, Difficulty Walking R26.2,Abnormalities of gait and mobility R26.9,Weakness R53.1 Onset 07/15/24 Subjective Information patient reports he is hurting down his L leg and L shoulder from a fall this past weekend. he reports he did not have an AD with his at the time of the fall. he reports was reaching out his backdoor of his house to pick something up and fell forward. he reports he began therapy for his R knee pain which is better. he reports he uses a walker and cane on and off. he came in today with a cane, but the foot of the cane fell off just prior to him walking in the door. he reports prior to PT, he was having to wear a brace on the R knee. he reports he no longer needs a brace. Reported Pain Level Pain Score 4,9: Self Report Assessment PT Clinical Summary mr. oro presents to skilled PT for his 10th skilled therapy visit of the R knee today. the R knee has been getting better since his initial evaluation, and displays great progress towards and achievement of initial goals. however, he recently had a falls this past weekend, and now has pain in the L LE and L shoulder. he displays a moderate fall risk per the tinetti, TUG, and 5x sit to stand. although his R knee is better, continued skilled PT is indicated to address his balance and ambulation safety deficits to improve his functional mobility and prevent injury. we will focus mostly on his balance and ambulation safety moving forward, but also continue addressing strength and rom deficits of the LE's. Plan of Care Interventions Electrical Stimulation,Gait Training,Hot Pack/Cold Pack,Manual Therapy,Neuro Re-education,Patient/ Caregiver Education,Therapeutic Activities, Therapeutic Exercise PT Services Indicated Yes Treatment Frequency and continue skilled PT 2x weekly for 6 more visits Duration These treatments will address the objective and functional deficits as defined above. The patient will be advanced safely and appropriately in order for the patient to progress towards his/her prior level of function. Additional exercises will be introduced and as well as a comprehensive home exercise program upon discharge, if needed, ?to ensure carryover of functional gains achieved in the clinic. This treatment plan has been reviewed and agreement upon by the patient.
--- NOTE | 2025-01-07 16:55 | PCPTNOTE ---
patient did not return for followup visits after re-eval
== END 2024-12-11 23:59 | disposition home or self-care (01) ==
LOC: CHSPT 10:47
PROVIDERS: PCP Internal Medicine; Visit Provider Internal Medicine
DX: M25.561 Pain in right knee (principal); R26.81 Unsteadiness on feet; M17.0 Bilateral primary osteoarthritis of knee
CPT/HCPCS: 97110; 97112; 97161; 97530

== ENCOUNTER 2025-01-03 15:05 | Outpatient (CLI) | payer MEDICARE, OTHER, SELFPAY ==
--- NOTE | ~2025-01-03 | XR_ITS ---
EXAM/PROCEDURE: XR chest 2V - 01/03/2025 15:24 CDT HISTORY: 69 years old Male with wheezing, cough, dyspnea x3 weeks TECHNIQUE: Two view(s) of the chest. COMPARISON: None available. FINDINGS: LUNGS/ PLEURA: No focal consolidation. No appreciable pneumothorax or large pleural effusion. HEART/ MEDIASTINUM: Heart appears normal in size. BONES: Degenerative changes. OTHER: Visualized upper abdomen is unremarkable. Partially visualized spinal leads. IMPRESSION: No acute process. Reviewed, dictated and finalized at location A. IMPRESSION: No acute process.
--- OUTSIDE RECORDS SUMMARY | 2025-01-03 15:10 | XMS_ITS | Patient Health Record ---
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 Role Phone Tony Ritterjay Unavailable [phone] Allergies No Known Allergies Reason For Referral No Information Medications Medication SIG (Take, Route, Frequency, Duration) Notes Start Date End Date Status amLODIPine Besylate 10 MG TAKE 1 TABLET BY MOUTH EVERY DAY Oral; Duration: 90 Days Active HYDROcodone-Acetamino phen 5-325 MG Oral; Duration: 15 Days Active Gabapentin 100 MG 1 capsule Oral three times a day; Duration: 90 days Mitchel Ritter 09/27/2024 11:24:09 AM CDT > Active DULoxetine HCl 30 MG 1 capsule in the morning Oral Once a day; Duration: 90 days total dose 90 mg daily Mitchel Ritter 09/27/2024 11:24:12 AM CDT > Active Donepezil HCl 10 MG 1 tablet at bedtime Oral Once a day; Duration: 90 days Mitchel Ritter 09/27/2024 11:24:18 AM CDT > Active buPROPion HCl ER (SR) 200 MG 1 TABLET Oral twice a day; Duration: 90 days Mitchel Ritter 09/27/2024 11:24:05 AM CDT > Active Gabapentin 300 MG Oral; Duration: 30 Days Active DULoxetine HCl 60 MG 1 capsule at bedtim e Oral Once a day; Duration: 90 days Mitchel Ritter 09/27/2024 11:24:15 AM CDT > Active Donepezil HCl 10 MG 1 tablet at bedtime Oral Once a day; Duration: 90 days Active Immunizations Vaccine Route Administration Date Status Comme nts Influenza virus vaccine, quadrivalent (IIV4), split virus, 0.25 mL dosage Unknown 06/17/2015 Administered Influenza, seasonal, injecta ble, preservative free, 3 yrs and above Unknown 04/24/2013 Administered Novel [id number], preservative free Unknown 06/22/2016 Administered Novel Fhizwphim-[id number], preservative free Unknown 04/12/2017 Administered Novel Kamoikitl-[id number], preservative free Unknown 04/25/2018 Administered Novel [id number]-[id number], preservative free Unknown 04/24/2019 Administered Novel Wbbawybor-Y4Y7-02, preservative free Unknown 03/18/2020 Administered Pfizer [employer]iontech Covid-19 Vac cine 2nd dose Unknown 2020 Administered Pfizer [employer] Covid-19 Vac cine 2nd dose Unknown 09/04/2020 Administered Pfizer [employer] Covid-19 Vac cine 2nd dose Unknown 04/05/2021 Administered Pfizer [employer] Covid-19 Vac cine 2nd dose Unknown 03/23/2022 Administered Pneumococcal conjugate PCV 13 Unknown 11/11/2015 Admini stered Tdap Unknown 01/27/2012 Administered Zoster Unknown 08/20/2014 Administered Social History Tobacco Use: Social History Observation Description Date Details (start date - stop date) Never Smoker NA - NA Sex Assigned At : Social History Observation Description Sex Assigned At Male Tobacco Control (Standard) Question Answer Notes Tobacco use: Nonsmoker Problems Problem Type SNOMED Code ICD Code Onset Dates Problem Status W/U Status Risk Notes Problem Severe recurrent major depression without psychotic features (99990615) Major depressive disorder, 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 Active confirmed Problem Generalized anxiety disorder (60883098) Generalized anxiety disorder (F41.1) 4 Active confirmed Problem Alzheimer's disease with early onset (038076346) Alzheimer's disease with early onset (G30.0) Active confirmed Problem Essential hypertension (41224678) Essential (primary) hypertension (I10) Active confirmed Problem Generalized anxiety disorder (12978065) GRACIELA (generalized anxiety disorder) (F41.1) Active confirmed Vital Signs Heart Rate 76 /min 12/30/2024 Blood pressure diastolic 75 mm Hg 12/30/2024 Height-cm 175.26 cm 12/30/2024 Weight-kg 111.58 kg 12/30/2024 Height 69.00 in 12/30/2024 Blood pressure systolic 135 mm Hg 12/30/2024 Weight 246 lbs 12/30/2024 BMI 36.32 kg/m2 12/30/2024 Encounters Encounter Location Date Provider Diagnosis [facility] [employer] [facility] [address] [facility] [address] [place] [address] 02/12/2024 Mitchel Stone Major depressive disorder, recurrent severe without psychotic features F33.2 ; Generalized anxiety disorder F41.1 and Alzheimer's disease with early onset G30.0 [facility] [address] [facility] [address] [place] [address] 05/24/2024 Mitchel Stone Major depressive disorder, recurrent severe without psychotic features F33.2 ; Generalized anxiety disorder F41.1 and Alzheimer's disease with early onset G30.0 [facility] [address] [facility] [address] [place] [address] 08/12/2024 Mitchel Stone Major depressive disorder, recurrent severe without psychotic features F33.2 ; GRACIELA (generalized anxiety disorder) F41.1 ; Generalized anxiety disorder F41.1 and Alzheimer's disease with early onset G30.0 [facility] [employer] [facility] [address] [facility] [address] [place] [address] 09/27/2024 Mitchel Stone Major depressive disorder, recurrent severe without psychotic features F33.2 ; GRACIELA (generalized anxiety disorder) F41.1 ; Alzheimer's disease with early onset G30.0 ; Encounter for screening for depression Z13.31 and Encounter for screening for cardiovascular disorders Z13.6 [facility] [employer] [facility] [address] [facility] [address] [place] [address] 12/30/2024 Mitchel Stone Major depressive disorder, recurrent severe without psychotic features F33.2 ; GRACIELA (generalized anxiety disorder) F41.1 ; Alzheimer's disease with early onset G30.0 ; Encounter for screening for cardiovascular disorders Z13.6 ; Encounter for screening for depression Z13.31 and Essential (primary) hypertension I10 [facility] [employer] [facility] [address] [facility] [address] [place] [address] 03/20/2024 Mitchel Stone Major depressive disorder, recurrent severe without psychotic features F33.2 [facility] [employer] [address] [place] [address] [place] [address] 03/25/2024 Mitchel Stone Assessments Encounter Date Diagnosis (ICD Code) Assessment Notes Treatment Notes Treatment Clinical Notes Section Notes 03/20/2024 Major depressive disorder, recurrent severe without psychotic features (ICD-10 - F33.2) 05/24/2024 Major depressive disorder, recurrent severe without psychotic features (ICD-10 - F33.2) Parkinson's Disease - Assessment: Patient reports slow progression of symptoms, including head shaking, teeth chattering, and grinding teeth at night. Uses a mouthguard to prevent damage from grinding. - Plan: - Continue current management. - Encourage follow-up with Parkinson's specialist for further evaluation. - Consider initiation of physical therapy. Depression and Anxiety - Assessment: Patient reports no improvement in symptoms. Notes that moving to a new place has reduced stress. - Plan: - Continue bupropion SR 200 mg twice a day. - Continue escitalopram 20 mg once a day. - Monitor response to medications and consider adjustments if necessary. Pain Management - Assessment: Patient reports electrodes in back help with non-intense pain but are less effective for intense pain. Unable to exercise due to back pain, which worsens with activity. - Plan: - Continue current pain management strategies. - Encourage patient to report changes in pain levels or effectiveness of electrodes. Sleep and Nocturia - Assessment: Patient reports sleeping 8 to 10 hours per night with occasional episodes of waking up frozen. Bladder stimulant has improved nocturia, reducing bathroom visits to twice a night. - Plan: - Continue current sleep and nocturia management. - Monitor for changes in sleep quality or nocturia frequency. Memory and Dementia - Assessment: Patient reports short-term memory problems but can recall long-term memories. Has a previous diagnosis of dementia. - Plan: - Perform memory test during current visit to assess cognitive function. - Monitor for changes in memory or cognitive abilities. Medications - Assessment: Patient is unsure about gabapentin dosage. Dr. Pappas is prescribing clonazepam 1 mg. - Plan: - Clarify gabapentin dosage with Ted. - Send prescriptions for bupropion SR, escitalopram, Tapazole, and clonazepam to pharmacy. Driving - Assessment: Patient reports difficulty driving at night but continues to drive around town. - Plan: - Encourage caution while driving. - Consider alternative transportation options if necessary. 08/12/2024 Major depressive disorder, recurrent severe without psychotic features (ICD-10 - F33.2) BUPROPION HCL SR 10/30/2019 11/13/2023 ESCITALOPRAM 06/12/2019 11/13/2023 GABAPENTIN 05/04/2019 09/18/2023 SPRAVATO 05/04/2019 12/01/2022 BUSPIRONE 06/12/2019 06/27/2022 CLONAZEPAM 04/03/2019 09/28/2022 MEMANTINE 09/12/2018 10/08/2021 VIIBRYD 05/16/2018 05/16/2018 09/27/2024 Major depressive disorder, recurrent severe without psychotic features (ICD-10 - F33.2) 09/27/2024 GRACIELA (generalized anxiety disorder) (ICD-10 - F41.1) 12/30/2024 Major depressive disorder, recurrent severe without psychotic features (ICD-10 - F33.2) Patient experiences depression due to declining physical abilities and isolation. - Continue duloxetine regimen: 30 mg once daily. - Continue bupropion regimen: 200 mg twice a day. 12/30/2024 GRACIELA (generalized anxiety disorder) (ICD-10 - F41.1) Patient experiences anxiety due to declining physical abilities and isolation. - Continue duloxetine regimen: 30 mg once daily. - Continue bupropion regimen: 200 mg twice a day. 02/12/2024 Major depressive disorder, recurrent severe without psychotic features (ICD-10 - F33.2) Left Toe Injury and Pain Management - Assessment: Patient reports a left toe injury with persistent pain, which has improved with a permanent TENS unit but still experiences severe pain episodes. A follow-up appointment is scheduled to adjust the TENS unit strength. - Plan: - Continue using the TENS unit and monitor pain levels - Encourage patient to avoid over-exertion and gradually increase activity as tolerated - Reassess pain management after the follow-up appointment Gait Unsteadiness and Recent Falls - Assessment: Patient has experienced three falls since moving to a new residence, reporting difficulty walking and leg discomfort due to weakness from inactivity. - Plan: - Encourage patient to maintain a safe environment to prevent falls - Recommend physical therapy to improve gait and balance - Monitor mobility and consider further evaluation if falls continue Depression - Assessment: Patient is currently taking bupropion SR 200 mg and citalopram 30 mg for depression. - Plan: - Continue current medications and monitor for changes in mood or depressive symptoms - Encourage patient to engage in activities and hobbies that promote mental well-being Parkinson's Disease - Assessment: Patient is taking carbidopa-levod opa and reports morning stiffness that improves with medication. - Plan: - Continue current medications and monitor for changes in motor symptoms or side effects - Encourage regular sleep schedule and light physical activity as tolerated Muscle Pain - Assessment: Patient is currently taking gabapentin for muscle pain. - Plan: - Continue gabapentin and monitor for changes in pain levels or side effects - Encourage light physical activity and stretching to alleviate muscle pain Medication Management - Assessment: Patient is taking multiple medications, including amlodipine, donepezil, clonazepam, and is no longer on buspirone or memantine. - Plan: - Continue current medications and monitor for changes in symptoms or side effects - Send prescriptions to [facility] at [place] for a three-month supply Daily Activities and Lifestyle - Assessment: Patient visits brother daily, drives short distances, walks the dog, engages in light activities, and has a vacation planned in 2.5 weeks. - Plan: - Encourage balance between activity and rest - Support adjustment to new living environment - Advise on appropriate vacation activities to prevent overexertion 02/12/2024 Generalized anxiety disorder (ICD-10 - F41.1) Left Toe Injury and Pain Management - Assessment: Patient reports a left toe injury with persistent pain, which has improved with a permanent TENS unit but still experiences severe pain episodes. A follow-up appointment is scheduled to adjust the TENS unit strength. - Plan: - Continue using the TENS unit and monitor pain levels - Encourage patient to avoid over-exertion and gradually increase activity as tolerated - Reassess pain management after the follow-up appointment Gait Unsteadiness and Recent Falls - Assessment: Patient has experienced three falls since moving to a new residence, reporting difficulty walking and leg discomfort due to weakness from inactivity. - Plan: - Encourage patient to maintain a safe environment to prevent falls - Recommend physical therapy to improve gait and balance - Monitor mobility and consider further evaluation if falls continue Depression - Assessment: Patient is currently taking bupropion SR 200 mg and citalopram 30 mg for depression. - Plan: - Continue current medications and monitor for changes in mood or depressive symptoms - Encourage patient to engage in activities and hobbies that promote mental well-being Parkinson's Disease - Assessment: Patient is taking carbidopa-levod opa and reports morning stiffness that improves with medication. - Plan: - Continue current medications and monitor for changes in motor symptoms or side effects - Encourage regular sleep schedule and light physical activity as tolerated Muscle Pain - Assessment: Patient is currently taking gabapentin for muscle pain. - Plan: - Continue gabapentin and monitor for changes in pain levels or side effects - Encourage light physical activity and stretching to alleviate muscle pain Medication Management - Assessment: Patient is taking multiple medications, including amlodipine, donepezil, clonazepam, and is no longer on buspirone or memantine. - Plan: - Continue current medications and monitor for changes in symptoms or side effects - Send prescriptions to [facility] for a three-month supply Daily Activities and Lifestyle - Assessment: Patient visits brother daily, drives short distances, walks the dog, engages in light activities, and has a vacation planned in 2.5 weeks. - Plan: - Encourage balance between activity and rest - Support adjustment to new living environment - Advise on appropriate vacation activities to prevent overexertion 02/12/2024 Alzheimer's disease with early onset (ICD-10 - G30.0) Left Toe Injury and Pain Management - Assessment: Patient reports a left toe injury with persistent pain, which has improved with a permanent TENS unit but still experiences severe pain episodes. A follow-up appointment is scheduled to adjust the TENS unit strength. - Plan: - Continue using the TENS unit and monitor pain levels - Encourage patient to avoid over-exertion and gradually increase activity as tolerated - Reassess pain management after the follow-up appointment Gait Unsteadiness and Recent Falls - Assessment: Patient has experienced three falls since moving to a new residence, reporting difficulty walking and leg discomfort due to weakness from inactivity. - Plan: - Encourage patient to maintain a safe environment to prevent falls - Recommend physical therapy to improve gait and balance - Monitor mobility and consider further evaluation if falls continue Depression - Assessment: Patient is currently taking bupropion SR 200 mg and citalopram 30 mg for depression. - Plan: - Continue current medications and monitor for changes in mood or depressive symptoms - Encourage patient to engage in activities and hobbies that promote mental well-being Parkinson's Disease - Assessment: Patient is taking carbidopa-levod opa and reports morning stiffness that improves with medication. - Plan: - Continue current medications and monitor for changes in motor symptoms or side effects - Encourage regular sleep schedule and light physical activity as tolerated Muscle Pain - Assessment: Patient is currently taking gabapentin for muscle pain. - Plan: - Continue gabapentin and monitor for changes in pain levels or side effects - Encourage light physical activity and stretching to alleviate muscle pain Medication Management - Assessment: Patient is taking multiple medications, including amlodipine, donepezil, clonazepam, and is no longer on buspirone or memantine. - Plan: - Continue current medications and monitor for changes in symptoms or side effects - Send prescriptions to [facility] for a three-month supply Daily Activities and Lifestyle - Assessment: Patient visits brother daily, drives short distances, walks the dog, engages in light activities, and has a vacation planned in 2.5 weeks. - Plan: - Encourage balance between activity and rest - Support adjustment to new living environment - Advise on appropriate vacation activities to prevent overexertion 12/30/2024 Alzheimer's disease with early onset (ICD-10 - G30.0) 08/12/2024 GRACIELA (generalized anxiety disorder) (ICD-10 - F41.1) BUPROPION HCL SR 10/30/2019 11/13/2023 ESCITALOPRAM 06/12/2019 11/13/2023 GABAPENTIN 05/04/2019 09/18/2023 SPRAVATO 05/04/2019 12/01/2022 BUSPIRONE 06/12/2019 06/27/2022 CLONAZEPAM 04/03/2019 09/28/2022 MEMANTINE 09/12/2018 10/08/2021 VIIBRYD 05/16/2018 05/16/2018 09/27/2024 Alzheimer's disease with early onset (ICD-10 - G30.0) 05/24/2024 Generalized anxiety disorder (ICD-10 - F41.1) Parkinson's Disease - Assessment: Patient reports slow progression of symptoms, including head shaking, teeth chattering, and grinding teeth at night. Uses a mouthguard to prevent damage from grinding. - Plan: - Continue current management. - Encourage follow-up with Parkinson's specialist for further evaluation. - Consider initiation of physical therapy. Depression and Anxiety - Assessment: Patient reports no improvement in symptoms. Notes that moving to a new place has reduced stress. - Plan: - Continue bupropion SR 200 mg twice a day. - Continue escitalopram 20 mg once a day. - Monitor response to medications and consider adjustments if necessary. Pain Management - Assessment: Patient reports electrodes in back help with non-intense pain but are less effective for intense pain. Unable to exercise due to back pain, which worsens with activity. - Plan: - Continue current pain management strategies. - Encourage patient to report changes in pain levels or effectiveness of electrodes. Sleep and Nocturia - Assessment: Patient reports sleeping 8 to 10 hours per night with occasional episodes of waking up frozen. Bladder stimulant has improved nocturia, reducing bathroom visits to twice a night. - Plan: - Continue current sleep and nocturia management. - Monitor for changes in sleep quality or nocturia frequency. Memory and Dementia - Assessment: Patient reports short-term memory problems but can recall long-term memories. Has a previous diagnosis of dementia. - Plan: - Perform memory test during current visit to assess cognitive function. - Monitor for changes in memory or cognitive abilities. Medications - Assessment: Patient is unsure about gabapentin dosage. Dr. Pappas is prescribing clonazepam 1 mg. - Plan: - Clarify gabapentin dosage with Ted. - Send prescriptions for bupropion SR, escitalopram, Tapazole, and clonazepam to pharmacy. Driving - Assessment: Patient reports difficulty driving at night but continues to drive around town. - Plan: - Encourage caution while driving. - Consider alternative transportation options if necessary. 05/24/2024 Alzheimer's disease with early onset (ICD-10 - G30.0) Parkinson's Disease - Assessment: Patient reports slow progression of symptoms, including head shaking, teeth chattering, and grinding teeth at night. Uses a mouthguard to prevent damage from grinding. - Plan: - Continue current management. - Encourage follow-up with Parkinson's specialist for further evaluation. - Consider initiation of physical therapy. Depression and Anxiety - Assessment: Patient reports no improvement in symptoms. Notes that moving to a new place has reduced stress. - Plan: - Continue bupropion SR 200 mg twice a day. - Continue escitalopram 20 mg once a day. - Monitor response to medications and consider adjustments if necessary. Pain Management - Assessment: Patient reports electrodes in back help with non-intense pain but are less effective for intense pain. Unable to exercise due to back pain, which worsens with activity. - Plan: - Continue current pain management strategies. - Encourage patient to report changes in pain levels or effectiveness of electrodes. Sleep and Nocturia - Assessment: Patient reports sleeping 8 to 10 hours per night with occasional episodes of waking up frozen. Bladder stimulant has improved nocturia, reducing bathroom visits to twice a night. - Plan: - Continue current sleep and nocturia management. - Monitor for changes in sleep quality or nocturia frequency. Memory and Dementia - Assessment: Patient reports short-term memory problems but can recall long-term memories. Has a previous diagnosis of dementia. - Plan: - Perform memory test during current visit to assess cognitive function. - Monitor for changes in memory or cognitive abilities. Medications - Assessment: Patient is unsure about gabapentin dosage. Dr. Pappas is prescribing clonazepam 1 mg. - Plan: - Clarify gabapentin dosage with Ted. - Send prescriptions for bupropion SR, escitalopram, Tapazole, and clonazepam to pharmacy. Driving - Assessment: Patient reports difficulty driving at night but continues to drive around town. - Plan: - Encourage caution while driving. - Consider alternative transportation options if necessary. 08/12/2024 Generalized anxiety disorder (ICD-10 - F41.1) BUPROPION HCL SR 10/30/2019 11/13/2023 ESCITALOPRAM 06/12/2019 11/13/2023 GABAPENTIN 05/04/2019 09/18/2023 SPRAVATO 05/04/2019 12/01/2022 BUSPIRONE 06/12/2019 06/27/2022 CLONAZEPAM 04/03/2019 09/28/2022 MEMANTINE 09/12/2018 10/08/2021 VIIBRYD 05/16/2018 05/16/2018 09/27/2024 Encounter for screening for depression (ICD-10 - Z13.31) 12/30/2024 Encounter for screening for cardiovascular disorders (ICD-10 - Z13.6) Continue monitoring cardiovascular health. 12/30/2024 Encounter for screening for depression (ICD-10 - Z13.31) 08/12/2024 Alzheimer's disease with early onset (ICD-10 - G30.0) BUPROPION HCL SR 10/30/2019 11/13/2023 ESCITALOPRAM 06/12/2019 11/13/2023 GABAPENTIN 05/04/2019 09/18/2023 SPRAVATO 05/04/2019 12/01/2022 BUSPIRONE 06/12/2019 06/27/2022 CLONAZEPAM 04/03/2019 09/28/2022 MEMANTINE 09/12/2018 10/08/2021 VIIBRYD 05/16/2018 05/16/2018 09/27/2024 Encounter for screening for cardiovascular disorders (ICD-10 - Z13.6) 12/30/2024 Essential (primary) hypertension (ICD-10 - I10) Patient manages hypertension with amlodipine. - Continue amlodipine regimen. 05/24/2024 Other referral to the local [facility] or national office of the Alzheimer's Association ( ; http://www.alz.or g), the Alzheimer's Disease Education and Referral Center ([facility]) ( ; http://www.kristine.ni h.gov/Alzheimers/ ), Parkinson's Disease - Assessment: Patient reports slow progression of symptoms, including head shaking, teeth chattering, and grinding teeth at night. Uses a mouthguard to prevent damage from grinding. - Plan: - Continue current management. - Encourage follow-up with Parkinson's specialist for further evaluation. - Consider initiation of physical therapy. Depression and Anxiety - Assessment: Patient reports no improvement in symptoms. Notes that moving to a new place has reduced stress. - Plan: - Continue bupropion SR 200 mg twice a day. - Continue escitalopram 20 mg once a day. - Monitor response to medications and consider adjustments if necessary. Pain Management - Assessment: Patient reports electrodes in back help with non-intense pain but are less effective for intense pain. Unable to exercise due to back pain, which worsens with activity. - Plan: - Continue current pain management strategies. - Encourage patient to report changes in pain levels or effectiveness of electrodes. Sleep and Nocturia - Assessment: Patient reports sleeping 8 to 10 hours per night with occasional episodes of waking up frozen. Bladder stimulant has improved nocturia, reducing bathroom visits to twice a night. - Plan: - Continue current sleep and nocturia management. - Monitor for changes in sleep quality or nocturia frequency. Memory and Dementia - Assessment: Patient reports short-term memory problems but can recall long-term memories. Has a previous diagnosis of dementia. - Plan: - Perform memory test during current visit to assess cognitive function. - Monitor for changes in memory or cognitive abilities. Medications - Assessment: Patient is unsure about gabapentin dosage. Dr. Pappas is prescribing clonazepam 1 mg. - Plan: - Clarify gabapentin dosage with Ted. - Send prescriptions for bupropion SR, escitalopram, Tapazole, and clonazepam to pharmacy. Driving - Assessment: Patient reports difficulty driving at night but continues to drive around town. - Plan: - Encourage caution while driving. - Consider alternative transportation options if necessary. 08/12/2024 Other Parkinson's Disease - Assessment: Patient has Parkinson's disease and is embarrassed about using a walker outside. - Plan: - Continue current medications and management. - Encourage the use of a walker for safety and to prevent falls. - Monitor the patient's mobility and consider referral to physical therapy if needed. Fall with Abrasions and Pain - Assessment: Patient experienced a fall resulting in abrasions and pain, particularly when getting up and sitting down. - Plan: - Clean and dress abrasions as needed. - Monitor for signs of infection. - Recommend udco-xqx-dhehvsi pain relief as needed for pain management. Chronic Back Pain - Assessment: Patient has chronic back pain and is currently on medication. - Plan: - Continue gabapentin and opioid pain medication (hydroquinone) as prescribed. - Encourage the use of electrodes for pain relief. - Reassess pain management in 6 weeks. Right Knee Pain - Assessment: Patient has right knee pain and an MRI scheduled for August 27. - Plan: - Continue wearing knee brace for support. - Follow up on MRI results after August 27 appointment. - Consider referral to retail service specialist based on MRI findings. Depression and Anxiety - Assessment: Patient has a history of depression and anxiety, including praying to God to take him due to unhappiness. - Plan: - Taper off escitalopram: one tablet daily for one week, then half tablet daily for one week, then stop. - Start duloxetine at 30 mg for a week, then increase to 60 mg. - Continue bupropion as is. - Reassess mental health status in 6 weeks. Follow-up Appointment - Plan: Schedule a follow-up appointment in 6 weeks to reassess the patient's overall health, pain management, and mental health status. BUPROPION HCL SR 10/30/2019 11/13/2023 ESCITALOPRAM 06/12/2019 11/13/2023 GABAPENTIN 05/04/2019 09/18/2023 SPRAVATO 05/04/2019 12/01/2022 BUSPIRONE 06/12/2019 06/27/2022 CLONAZEPAM 04/03/2019 09/28/2022 MEMANTINE 09/12/2018 10/08/2021 VIIBRYD 05/16/2018 05/16/2018 09/27/2024 Other Imported from Highlights: Test Name: MRI Knee Right WO Contrast Date Performed: 2024-08-30 11:43:13 Findings: 1. Truncated right medial meniscus body and posterior horn, favored to represent partial meniscectomy or complex degenerative tear. 2. Probable small, partial tear of the lateral meniscus posterior root. 3. Mild medial compartment predominant, tricompartmental right knee chondrosis. Test Name: XR Spine Thoracolumbar Junction 2 or More Views, XR Pelvis 1 or 2 Views Date Performed: 2024-08-30 08:04:08 Findings: 1. Unchanged thoracic spinal stimulator with generator overlying the left back soft tissues entering the canal at L1-L2 and terminating at T8. 2. Unchanged right sacral nerve stimulator with generator overlying the right buttock soft tissues. 3. Moderate multilevel lumbar degenerative disc disease. 4. Vertebral body heights preserved. BUPROPION HCL SR 10/30/2019 11/13/2023 ESCITALOPRAM 06/12/2019 11/13/2023 GABAPENTIN 05/04/2019 09/18/2023 SPRAVATO 05/04/2019 12/01/2022 BUSPIRONE 06/12/2019 06/27/2022 CLONAZEPAM 04/03/2019 09/28/2022 MEMANTINE 09/12/2018 10/08/2021 VIIBRYD 05/16/2018 05/16/2018 Problem-Based Assessment and Plan Mr. Faraz Cooper presents with chronic knee pain, balance issues, and depression, currently undergoing physical therapy for a meniscus tear and medication management for mood and pain. Knee Pain and Mobility Issues Assessment: Patient has a truncated right medial meniscus body and posterior horn tear, confirmed by MRI on August 30. He is currently undergoing physical therapy to strengthen the knee and avoid surgery. The patient uses a walker at home and a cane outside, but is progressing towards using a walker outside as well due to increasing balance issues. There are also reports of right hip instability during ambulation. Plan: - Continue physical therapy for knee strengthening - Monitor progress and reassess need for surgical intervention - Consider referral to Parkinson's specialist for evaluation of gait instability and hip issues Depression and Chronic Pain Assessment: Patient was previously on Lexapro for depression, which has been tapered off and replaced with duloxetine. The patient reports feeling a little bit better on duloxetine compared to Lexapro. Duloxetine is being used to address both depression and chronic pain. Plan: - Increase duloxetine to 30 mg PO in the morning and 60 mg PO at night - Monitor for gastrointestinal side effects - Continue bupropion 200 mg PO twice daily - Continue gabapentin 1 capsule PO three times daily - Reassess efficacy of medication regimen at follow-up Disclaimer: This note has been transcribed using speech recognition software and serves as a reflection of the patient's visit. While efforts have been made to ensure accuracy, there may be errors, including inspector production plastic parts inaccuracies and misspellings of medication names. This document should not be considered a verbatim record, and any discrepancies should be verified with the provider. 12/30/2024 Other Patient experiences significant mobility difficulties and frequent falls. Levodopa regimen adjusted to improve nighttime mobility. - Continue current levodopa regimen: one in the evening and two after midnight. - Consider water exercise for back pain relief. Patient experiences significant back pain exacerbating mobility issues. Physical therapy has been ineffective, worsening pain. - Continue gabapentin regimen: 400 mg 3 times a day. - Consider water exercise for back pain relief. Plan Of Treatment Next Appt Details Provider Name:Mitchel Ritter , 05/19/2025 11:00:00 AM, [address], [facility] [address], [place], [address], Insurance Providers Payer Name Payer Address Payer Phone Subscriber Number Group Number Insured Name Patient Relationship to Insured Coverage Start Date Coverage End Date [place] [address] [facility] [place] [phone] [id number] LORRAINE COOPER Self - [facility] the [facility] [address] [place] [address] [id number] HAYLIE COOPER Spouse - patient is the spouse of the insured Medical (General) History Medical History History ICD Code Imported from Highlights: O Imported from Highlights: On December 15, 2023, the patient had multiple visits to the [facility] and received clinical support. The patient was seen by Nyla Tobias NP, during office visits. The patient's significant health issues include memory changes and primary parkinsonism, both of which were noted during all visits. Additionally, during the office visits, the patient was also diagnosed with anxiety and depression, chronic fatigue, and slow transit constipation. The patient's conditions seem to be chronic and require ongoing medical attention. Imported from Highlights: Th e patient had multiple encounters at [facility] on 08/30/2024. The patient was seen by Dr. Maco Barrientos for imaging to screen for metal prior to a magnetic resonance imaging (MRI) procedure. This procedure was performed twice on the same day. Additionally, the patient had an unspecified internal derangement of the right knee, but the attending physician for this issue was not specified in the records. Surgical History Surgery Date(Month/Year) Any surgical history Appendectomy (78938) 06/26/1970 Other back surgery 06/26/1990 Sinus surgery 11/24/2021
[2025-01-03 15:24] LABS: Hematocrit 46.2 % (37.0-46.0); Hemoglobin 14.4 g/dL (12.4-15.3); Immature Granulocyte Percent A 0.7 % (0.0-0.0); Lymphocytes Absolute Auto 1.67 K/mm3 (1.10-4.50); Mean Corpuscular HGB Conc 31.2 g/dL (32-36); Mean Corpuscular Hemoglobin 31.1 pg (27.0-31.0); Mean Corpuscular Volume 99.8 fL (78.0-102.0); Nucleated Red Blood Cells Absolute Auto 0.00 K/mm3 (0.00-0.00); Nucleated Red Blood Cells Perc 0.0 % (0-0.0); Platelet Count Result 296 K/mm3 (150-420); Red Blood Count 4.63 M/mm3 (4.70-6.10); White Blood Count 8.6 K/mm3 (4.8-10.8)
[2025-01-03 15:35] LABS: Alanine Aminotransferase 8 U/L (6-50); Albumin Level 4.4 g/dL (3.5-5.1); Alkaline Phosphatase 82 U/L (38-126); Anion Gap 5 mmol/L (4-12); Aspartate Amino Transferase 31 U/L (17-59); Bilirubin,Total 0.5 mg/dL (0.2-1.3); Blood Urea Nitrogen 23 mg/dL (9-20); Calcium 8.9 mg/dL (8.4-10.2); Carbon Dioxide 29 mmol/L (22-30); Chloride 107 mmol/L (98-107); Estimated Glomerular Filt Rate 55; Glucose 103 mg/dL (65-110); Osmolality Calculated 295 mOsm/kg (285-295); Potassium 4.6 mmol/L (3.4-5.0); Sodium 141 mmol/L (137-145); Total Protein 7.1 g/dL (6.3-8.2)
[2025-01-03 15:44] LABS: NT Pro B Type Natriuretic Pept 58 pg/mL (19.9-100)
== END 2025-01-03 15:06 | disposition home or self-care (01) ==
LOC: CHSLAB 15:08
PROVIDERS: PCP Internal Medicine; Visit Provider Internal Medicine
DX: R06.2 Wheezing (principal); R05.9 Cough, unspecified; R06.00 Dyspnea, unspecified
CPT/HCPCS: 36415; 71046; 80053; 83880; 85025

== ENCOUNTER 2025-01-22 13:41 | Outpatient (CLI) | payer MEDICARE, OTHER, SELFPAY ==
--- OUTSIDE RECORDS SUMMARY | 2025-01-22 13:54 | XMS_ITS | Clinical Summary ---
Author Organization [facility] Address [address] [place] [id number] Care Team Providers Care Mechanic Driver Name Role Phone Unavailable Primary Care Provider Unavailabl e Social History Tobacco Use Types Packs/Day Years Used Date Smoking Tobacco: Never Assessed Sex and Gender Information Value Date Recorded Sex Assigned at Not on file Legal Sex Male 7:55 PM CDT Gender Identity Not on file Sexual Orientation Not on file Plan of Treatment Health Maintenance Due Date Last Done Comments Colorectal Cancer Screening Colonoscopy (10 Years) 1954 Hepatitis C 1972 DTaP, Tdap and Td Vaccines ( 1 - Tdap) 1973 Pneumococcal Vaccine: 50+ Ye ars (1 of 1 - PCV) 2004 Zoster Vaccines (1 of 2) 2004 COVID-19 Vaccine ( - 2023-2 5 season) 2024 RSV Immunization or 60+ Years (1 - 1-dose 75+ series) 2029 Meningococcal B Vaccine Aged Out No l onger eligible based on patient's age to complete this topic Meningococcal Vaccine Aged Out No ciarra monica eligible based on patient's age to complete this topic RSV Immunizations Under 20 Months Aged Out No longer eligible based on patient's age to complete this topic
--- OUTSIDE RECORDS SUMMARY | 2025-01-22 13:55 | XMS_ITS | Patient Health Record ---
Author Organization [facility] Address [address] [facility] [address] [place] [address] Care Team Providers Care Airplane Mechanic Name Role Phone Tony Ritterjay Unavailable [phone] Allergies No Known Allergies Reason For Referral [...] Vaccine Route Administration Date Status Comme nts Novel [id number], preservative free Unknown 04/25/2018 Administered Zoster Unknown 08/20/2014 Administered Tdap Unknown 01/27/2012 Administered Pneumococcal conjugate PCV 13 Unknown 11/11/2015 Admini stered Pfizer Biontech Covid-19 Vac cine 2nd dose Unknown 03/23/2022 Administered Pfizer Biontech Covid-19 Vac cine 2nd dose Unknown 04/05/2021 Administered Pfizer Biontech Covid-19 Vac cine 2nd dose Unknown 09/04/2020 Administered Pfizer Biontech Covid-19 Vac cine 2nd dose Unknown 2020 Administered Novel [id number]-[id number], preservative free Unknown 03/18/2020 Administered Novel Zhklkdwic-W8L4-84, preservative free Unknown 04/24/2019 Administered Novel [id number]-Q5B8-08, preservative free Unknown 04/12/2017 Administered Novel Jnjujhbol-V7K3-45, preservative free Unknown 06/22/2016 Administered Influenza, seasonal, injecta ble, preservative free, 3 yrs and above Unknown 04/24/2013 Administered Influenza virus vaccine, quadrivalent (IIV4), split virus, 0.25 mL dosage Unknown 06/17/2015 Administered Social History Tobacco Use: Social History [...] Severe recurrent major depression without psychotic features (85542576) Major depressive disorder, 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 Active confirmed Problem Generalized anxiety disorder (80569116) Generalized anxiety disorder (F41.1) 4 Active confirmed Problem Alzheimer's disease with early onset (337673634) Alzheimer's disease with early onset (G30.0) Active confirmed Problem Essential hypertension (93416780) Essential (primary) hypertension (I10) Active confirmed Problem Generalized anxiety disorder (59172459) GRACIELA (generalized anxiety disorder) (F41.1) Active confirmed Vital Signs Heart Rate 76 /min 12/30/2024 Blood pressure diastolic 75 mm Hg 12/30/2024 Height-cm 175.26 cm 12/30/2024 Weight-kg 111.58 kg 12/30/2024 Height 69.00 in 12/30/2024 Blood pressure systolic 135 mm Hg 12/30/2024 Weight 246 lbs 12/30/2024 BMI 36.32 kg/m2 12/30/2024 Encounters Encounter Location Date Provider Diagnosis [facility] [employer] [facility] [address] [facility] [address] [place] [address] 02/12/2024 Mitchel Stone Major depressive disorder, recurrent severe without psychotic features F33.2 ; Generalized anxiety disorder F41.1 and Alzheimer's disease with early onset G30.0 [facility] [address] [facility] [address] [place] [address] 05/24/2024 Mitchel Stone Major depressive disorder, recurrent severe without psychotic features F33.2 ; Generalized anxiety disorder F41.1 and Alzheimer's disease with early onset G30.0 [facility] [address] [facility] [address] [place] [address] 08/12/2024 Mitchel Stone Major depressive disorder, recurrent severe without psychotic features F33.2 ; GRACIELA (generalized anxiety disorder) F41.1 ; Generalized anxiety disorder F41.1 and Alzheimer's disease with early onset G30.0 [facility] [employer] [facility] [address] [facility] [address] [place] [address] 09/27/2024 Mitchel Stone Major depressive disorder, recurrent severe without psychotic features F33.2 ; GRACIELA (generalized anxiety disorder) F41.1 ; Alzheimer's disease with early onset G30.0 ; Encounter for screening for depression Z13.31 and Encounter for screening for cardiovascular disorders Z13.6 [facility] [employer] [facility] [address] [facility] [address] [place] [address] 12/30/2024 Mitchel Stone Major depressive disorder, recurrent severe without psychotic features F33.2 ; GRACIELA (generalized anxiety disorder) F41.1 ; Alzheimer's disease with early onset G30.0 ; Encounter for screening for cardiovascular disorders Z13.6 ; Encounter for screening for depression Z13.31 and Essential (primary) hypertension I10 [facility] [employer] [facility] [address] [facility] [address] [place] [address] 03/20/2024 Mitchel Stone Major depressive disorder, recurrent severe without psychotic features F33.2 [facility] [employer] [address] [place] [address] 03/25/2024 Mitchel Stone Assessments Encounter Date Diagnosis [...] or side effects - Send prescriptions to [facility] [place] for a three-month supply Daily Activities and [...] or side effects - Send prescriptions to [facility] for a three-month supply Daily Activities and [...] or side effects - Send prescriptions to [facility] access hospital for a three-month supply Daily Activities and [...] regimen. 05/24/2024 Other referral to the local [facility] or national office of the Alzheimer's Association [...] Monitor for signs of infection. - Recommend czsd-urm-uhhliem pain relief as needed for pain management. [...] August 27 appointment. - Consider referral to podiatrist orthopedic based on MRI findings. Depression and Anxiety [...] ensure accuracy, there may be errors, including popcorn machine operator inaccuracies and misspellings of medication names. This [...] Name:Mitchel Ritter , 05/19/2025 11:00:00 AM, [address] [facility] [address], [facility] [address], [place], [address], Insurance Providers Payer Name Payer Address Payer Phone Subscriber Number Group Number Insured Name Patient Relationship to Insured Coverage Start Date Coverage End Date [place] [address] [facility] [place] [phone] [id number] LORRAINE COOPER Self - patient is the [facility] [address] [place] [address] [id number] HAYLIE COOPER Spouse - patient is the spouse of the insured Medical (General) History Medical History History ICD Code Imported from Highlights: O Imported from Highlights: On December 15, 2023, the patient had multiple visits to the [facility] and received clinical support. [...] Th e patient had multiple encounters at [facility] on 08/30/2024. The patient was seen by [...] History Surgery Date(Month/Year) Any surgical history Appendectomy (89563) 06/26/1970 Other back surgery 06/26/1990 Sinus surgery 11/24/2021
--- OUTSIDE RECORDS SUMMARY | 2025-01-22 13:55 | XMS_ITS | Clinical Summary ---
Author Organization [facility] Address [address] [address] Phone Care Team Providers Care Child Care Cook Name Role Phone Kayla Ulloa MD Primary Care Provider [phone] Allergies No known active allergies Medications memantine (NAMENDA) 10 MG Tablet TAKE 1 TABLET BY MOUTH TWICE A DAY 0 9 Active BUPROPION HCL ER, XL, PO 200 mg 2 times daily. 0 9 Active clonazePAM (KLONOPIN) 0.5 MG Tablet TAKE 1 TABLET BY MOUTH THREE TIMES A DAY 0 9 Active Multiple Vitamins-Minera ls (MENS MULTIPLUS PO) Take by mouth. A ctive carbidopa-levod opa (SINEMET) 25-100 MG TabletIndicatio ns:Parkinson's Disease every morning. Indications: Parkinson's Disease 9 Active escitalopram (LEXAPRO) 10 MG Tablet Take 10 mg by mouth every morning. 0 9 Active CETIRIZINE HCL PO Take 10 mg by mouth every morning. Active BRADY ASPIRIN PO Take 81 mg by mouth every morning. Active Polyethylene Glycol 3350 (MIRALAX PO) Take by mouth every morning. Active rosuvastatin (CRESTOR) 5 MG Tablet Take 5 mg by mouth every morning. 1 9 Active lisinopril (PRINIVIL, ZESTRIL) 40 MG Tablet Take by mouth every morning. Active methylcellulose (CITRUCEL) Powder Take by mouth every morning. Active LINZESS 290 MCG Capsule TAKE ONE CAPSULE BY MOUTH EVERY DAY BEFORE BREAKFAST 30 Cap 3 9 Active Additional Information Patient taking differently: EVERY MORNING, Reported on 02/13/2020 triamterene-hyd rochlorothiazid e (MAXZIDE) 37.5-25 MG Tablet Take 1 Tab by mouth. M, W, F Active busPIRone (BUSPAR) 5 MG Tablet Take 5 mg by mouth 2 times daily. Active gabapentin (NEURONTIN) 100 MG Capsule Take 100 mg by mouth every morning. Active Family History Medical History Relation Name Comments Aneurysm Father SURGERY AT AGE 75 Heart Attack Father 1947 Heart Surgery Father 6 BYPASS SURGE RY AT AGE 75 Parkinsonism Mother Relation Name Status Comments Father Mother Social History Tobacco Use Types Packs/Day Years Used Date Smoking Tobacco: Never Smokeless Tobacco: Former Chew Quit: 1994 Alcohol Use Standard Drinks/Week Comments Never 0 (1 standard drink = 0.6 oz pur e alcohol) AUDIT-C Answer Date Recorded Frequency of Alcohol Consumption Never 12/12/2018 Average Number of Drinks Not on file 019 Frequency of Binge Drinking Not on file 11/24 Sex and Gender Information Value Date Recorded Sex Assigned at Not on file Legal Sex Male 12:24 AM CDT Gender Identity Not on file Sexual Orientation Not on file Last Filed Vital Signs Vital Sign Reading Time Taken Comments Blood Pressure 122/69 04/01/2020 8:41 AM CDT Pulse 74 04/01/2020 6:30 AM CDT Temperature 36 C (96.8 F) 04/01/2020 8:41 AM CDT Respiratory Rate 18 04/01/2020 8:41 AM CDT Oxygen Saturation 97% 04/01/2020 8:41 AM CDT Inhaled Oxygen Concentration - - Weight 100.7 kg (222 lb) 02/13/2020 1:00 PM CDT Height 175.3 cm (5' 9) 02/13/2020 1:00 PM CDT Body Mass Index 32.78 02/13/2020 1:00 PM CDT Plan of Treatment Health Maintenance Due Date Last Done Comments Hepatitis C Virus (HCV) Screening 1955 TdaP Immunization 1955 Cologuard 1999 Immunochemical Fecal Occult Blood 1999 Pneumococcal Immunization (5 0+ years) (1 of 1 - PCV) 2004 Zoster Immunization (1 of 2) 2004 SARS-COV-2 Immunization ( season) 2024 04/05/2021, 09/04/2020, 2020 Influenza Immunization (#1) 2025 Colonoscopy 04/01/2025 04/01/2020, 12/25/2018 Colorectal Cancer Screening 04/01/2025 Respiratory Syncytial Virus (RSV) Immunization (Adult) (1 - 1-dose 75+ series) 2029 Hepatitis B Immunization Aged Out No longer eligible based on patient's age to complete this topic Human Papillomavirus (HPV) Immunization Aged Out No longer eligible b ased on patient's age to complete this topic Meningococcal Immunization (ACWY) Aged Out No longer eligible b ased on patient's age to complete this topic Rotavirus Immunization Aged Out No lo nger eligible based on patient's age to complete this topic [facility] Care Teams Child Care Cook Relationship Specialty Start Date End Date Kayla Ulloa MD [address] [place] [address] PCP - General Internal Medicine 12/12/18
[2025-01-22 13:56] LABS: Hematocrit 47.7 % (37.0-46.0); Hemoglobin 15.0 g/dL (12.4-15.3); Mean Corpuscular HGB Conc 31.4 g/dL (32-36); Mean Corpuscular Hemoglobin 31.0 pg (27.0-31.0); Mean Corpuscular Volume 98.6 fL (78.0-102.0); Platelet Count Result 287 K/mm3 (150-420); Red Blood Count 4.84 M/mm3 (4.70-6.10); White Blood Count 9.6 K/mm3 (4.8-10.8)
[2025-01-22 13:58] LABS: Add Urine Microscopic? YES; Appearance Urine Clear (Clear); Glucose Urine UA Negative (Negative); Leukocyte Esterase Ur Negative (Negative); Nitrate Urine Negative (Negative); Specific Grav Ur >= 1.030 (1.010-1.020)
[2025-01-22 15:18] LABS: Alanine Aminotransferase 10 U/L (6-50); Albumin Level 4.8 g/dL (3.5-5.1); Alkaline Phosphatase 85 U/L (38-126); Anion Gap 6 mmol/L (4-12); Aspartate Amino Transferase 29 U/L (17-59); Bilirubin,Total 0.5 mg/dL (0.2-1.3); Blood Urea Nitrogen 27 mg/dL (9-20); Calcium 9.5 mg/dL (8.4-10.2); Carbon Dioxide 27 mmol/L (22-30); Chloride 106 mmol/L (98-107); Cholesterol 185 mg/dL (0-200); Creatine Kinase 163 U/L (55-170); Estimated Glomerular Filt Rate > 60; Glucose 82 mg/dL (65-110); HDL Direct 93 mg/dL; Osmolality Calculated 292 mOsm/kg (285-295); Potassium 5.2 mmol/L (3.4-5.0); Sodium 139 mmol/L (137-145); Total Protein 6.8 g/dL (6.3-8.2); Triglycerides 168 mg/dL (<150)
[2025-01-22 15:26] LABS: NT Pro B Type Natriuretic Pept 86 pg/mL (19.9-100)
[2025-01-22 15:34] LABS: Free T4 Free Thyroxine 0.89 ng/dL (0.78-2.19)
[2025-01-22 15:48] LABS: Thyroid Stimulating Hormone 1.680 uIU/mL (0.465-4.680)
[2025-01-22 16:07] LABS: Vitamin B12 802.0 pg/mL (239-931)
== END 2025-01-22 13:42 | disposition home or self-care (01) ==
PROVIDERS: PCP Internal Medicine; Visit Provider Internal Medicine
DX: G31.84 Mild cognitive impairment of uncertain or unknown etiology (principal); E78.2 Mixed hyperlipidemia; I10 Essential (primary) hypertension; J32.4 Chronic pansinusitis; R60.0 Localized edema; R06.2 Wheezing
CPT/HCPCS: 36415; 80053; 80061; 81001; 82550; 82607; 83880; 84439; 84443; 85027

== ENCOUNTER 2025-01-27 12:10 | Outpatient (CLI) | payer MEDICARE, OTHER, SELFPAY ==
--- NOTE | ~2025-01-27 | US_ITS ---
EXAMINATION:US venous doppler LE BI INDICATION:Bilateral leg edema TECHNIQUE: Multiple grayscale, color flow and Doppler images of the right and left lower extremity de ep venous systems were obtained and reviewed. COMPARISON:No prior studies for comparison. FINDINGS: The common femoral, superficial femoral and popliteal veins demonstrate normal respiratory variation, augmentation and compressibility. Color flow is also seen within the posterior tibial, pe roneal, greater saphenous and profunda veins. IMPRESSION: 1: No lower extremity deep venous thrombosis. Reviewed, dictated and finalized at location A.
--- OUTSIDE RECORDS SUMMARY | 2025-01-27 12:16 | XMS_ITS | Patient Health Record ---
Author Organization [facility] As [employer] Address [address] [facility] [address] [place] [address] Care Team Providers Care Automotive Airconditioning Mechanic Name Role Phone Tony Ritterjay Unavailable [phone] Allergies No Known Allergies Reason For Referral [...] yrs and above Unknown 04/24/2013 Administered Novel Jlwaqdguk-U5Y1-03, preservative free Unknown 06/22/2016 Administered Novel Msthhqxkx-Q0J4-83, preservative free Unknown 04/12/2017 Administered Novel Sshpbiqjt-O6J1-00, preservative free Unknown 04/25/2018 Administered Novel Ikalatphv-X9F4-80, preservative free Unknown 04/24/2019 Administered Novel Jaexwddlf-T8S3-68, preservative free Unknown 03/18/2020 Administered Pfizer Biontech [...] Severe recurrent major depression without psychotic features (56339568) Major depressive disorder, 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 Active confirmed Problem Generalized anxiety disorder (36645922) Generalized anxiety disorder (F41.1) 4 Active confirmed Problem Alzheimer's disease with early onset (900895626) Alzheimer's disease with early onset (G30.0) Active confirmed Problem Essential hypertension (16885152) Essential (primary) hypertension (I10) Active confirmed Problem Generalized anxiety disorder (79350864) GRACIELA (generalized anxiety disorder) (F41.1) Active confirmed Vital Signs Heart Rate 76 /min 12/30/2024 Blood pressure diastolic 75 mm Hg 12/30/2024 Height-cm 175.26 cm 12/30/2024 Weight-kg 111.58 kg 12/30/2024 Height 69.00 in 12/30/2024 Blood pressure systolic 135 mm Hg 12/30/2024 Weight 246 lbs 12/30/2024 BMI 36.32 kg/m2 12/30/2024 Encounters Encounter Location Date Provider Diagnosis [facility] [address] [facility] [address] [place] [address] 02/12/2024 Mitchel Stone Major depressive disorder, recurrent severe without psychotic features F33.2 ; Generalized anxiety disorder F41.1 and Alzheimer's disease with early onset G30.0 [facility] [address] [facility] [address] [place] [address] 05/24/2024 Mitchel Stone Major depressive disorder, recurrent severe without psychotic features F33.2 ; Generalized anxiety disorder F41.1 and Alzheimer's disease with early onset G30.0 [facility] [place] [facility] [address] [facility] [address] [place] [address] 08/12/2024 Mitchel Stone Major depressive disorder, recurrent severe without psychotic features F33.2 ; GRACIELA (generalized anxiety disorder) F41.1 ; Generalized anxiety disorder F41.1 and Alzheimer's disease with early onset G30.0 [facility] [employer] [facility] [address] [facility] [address] [place] [address] 09/27/2024 Mitchel Stone Major depressive disorder, recurrent severe without psychotic features F33.2 ; GRACIELA (generalized anxiety disorder) F41.1 ; Alzheimer's disease with early onset G30.0 ; Encounter for screening for depression Z13.31 and Encounter for screening for cardiovascular disorders Z13.6 [facility] [employer] [facility] [address] [facility] [address] [place] [address] 12/30/2024 Mitchel Stone Major depressive disorder, recurrent severe without psychotic features F33.2 ; GRACIELA (generalized anxiety disorder) F41.1 ; Alzheimer's disease with early onset G30.0 ; Encounter for screening for cardiovascular disorders Z13.6 ; Encounter for screening for depression Z13.31 and Essential (primary) hypertension I10 [facility] [employer] [facility] [address] [facility] [address] [place] [address] 03/20/2024 Mitchel Stone Major depressive disorder, recurrent severe without psychotic features F33.2 [facility] [employer] [address] [place] [place] [address] 03/25/2024 Mitchel Stone Assessments Encounter Date Diagnosis [...] or side effects - Send prescriptions to [facility] [place] for a three-month supply Daily Activities and [...] or side effects - Send prescriptions to [facility] for a three-month supply Daily Activities and [...] or side effects - Send prescriptions to [facility] for a three-month supply Daily Activities and [...] regimen. 05/24/2024 Other referral to the local [facility] or national office of the Alzheimer's [...] Monitor for signs of infection. - Recommend tnuo-ypv-smtwjin pain relief as needed for pain management. [...] August 27 appointment. - Consider referral to [facility] senior specialist based on MRI findings. Depression and [...] ensure accuracy, there may be errors, including early head start teacher inaccuracies and misspellings of medication names. This [...] Name:Mitchel Ritter , 05/19/2025 11:00:00 AM, [address] [facility] [address] [facility] [address], [place], [address], Insurance Providers Payer Name Payer Address Payer Phone Subscriber Number Group Number Insured Name Patient Relationship to Insured Coverage Start Date Coverage End Date [place] [address] [facility] [place] [address] [id number] LORRAINE COOPER Self - [facility] [address] [place] [address] [id number] I [id number] HAYLIE COOPER Spouse - patient is the spouse of the insured Medical (General) History Medical History History ICD Code Imported from Highlights: O Imported from Highlights: On December 15, 2023, the patient had multiple visits to the [facility] and received clinical [...] Th e patient had multiple encounters at [facility] on 08/30/2024. The patient was seen by [...] History Surgery Date(Month/Year) Any surgical history Appendectomy (51697) 06/26/1970 Other back surgery 06/26/1990 Sinus surgery 11/24/2021
--- OUTSIDE RECORDS SUMMARY | 2025-01-27 12:16 | XMS_ITS | Clinical Summary ---
Author Organization [facility] Address [address] [place] [address] Care Team Providers Care Solar Sales Associate Name Role Phone Unavailable Primary Care Provider [...]
--- OUTSIDE RECORDS SUMMARY | 2025-01-27 12:16 | XMS_ITS | Clinical Summary ---
Author Organization [facility] Address [address] [address] Phone Care Team Providers Care Floating Derrick Operator Name Role Phone Kayla Ulloa MD Primary Care Provider [phone] Allergies No known active allergies Medications memantine [...] patient's age to complete this topic [facility] Care Teams Floating Derrick Operator Relationship Specialty Start Date End Date Kayla Ulloa MD [address] [place] [address] PCP - General Internal Medicine 12/12/18
== END 2025-01-27 12:11 | disposition home or self-care (01) ==
LOC: CHSIMG 12:14
PROVIDERS: PCP Internal Medicine; Visit Provider Internal Medicine
DX: R22.43 Localized swelling, mass and lump, lower limb, bilateral (principal)
CPT/HCPCS: 93970

== ENCOUNTER 2025-02-12 09:38 | Outpatient (CLI) | payer OTHER, MEDICARE, SELFPAY ==
--- OUTSIDE RECORDS SUMMARY | 2025-02-12 09:47 | XMS_ITS | Clinical Summary ---
Author Organization [facility] Address [address] [address] Phone Care Team Providers Care Estate Agent Name Role Phone Kayla Ulloa MD Primary Care Provider [phone] Allergies No known active allergies Medications memantine [...] patient's age to complete this topic [facility] Care Teams Estate Agent Relationship Specialty Start Date End Date Kayla Ulloa MD [address] [place] [address] PCP - General Internal Medicine 12/12/18
--- OUTSIDE RECORDS SUMMARY | 2025-02-12 09:47 | XMS_ITS | Patient Health Record ---
Author Organization [facility] [employer] Address [address] [facility] [address] [place] [address] Care Team Providers Care Creative Lead Name Role Phone Tony Ritterjay Unavailable [phone] Allergies No Known Allergies Reason For Referral No Information Medications Medication SIG (Take, Route, Frequency, Duration) Notes Start Date End Date Status amLODIPine Besylate 10 MG Tablet TAKE 1 TABLET BY MOUTH EVERY DAY Oral; Duration: 90 Days Active HYDROcodone-Acetamino phen 5-325 MG Tablet Oral; Duration: 15 Days Active Gabapentin 100 MG Capsule 1 capsule Oral three times a day; Duration: 90 days Mitchel Ritter 09/27/2024 11:24:09 AM CDT > Active DULoxetine HCl 30 MG Capsule Delayed Release Particles 1 capsule in the morning Oral Once a day; Duration: 90 days total dose 90 mg daily Mitchel Ritter 09/27/2024 11:24:12 AM CDT > Active Donepezil HCl 10 MG Tablet 1 tablet at bedtime Oral Once a day; Duration: 90 days Mitchel Ritter 09/27/2024 11:24:18 AM CDT > Active buPROPion HCl ER (SR) 200 MG Tablet Extended Release 12 Hour 1 TABLET Oral twice a day; Duration: 90 days Mitchel Ritter 09/27/2024 11:24:05 AM CDT > Active Gabapentin 300 MG Capsule Oral; Duration: 30 Days Active DULoxetine HCl 60 MG Capsule Delayed Release Particles 1 capsule at bedtime Oral Once a day; Duration: 90 days Mitchel Ritter 09/27/2024 11:24:15 AM CDT > Active Donepezil HCl 10 MG Tablet 1 tablet at bedtime Oral Once a day; Duration: 90 days Active Immunizations Vaccine Route Administration Date Status Comme nts Influenza virus vaccine, quadrivalent (IIV4), split virus, 0.25 mL dosage Unknown 06/17/2015 Administered Influenza, seasonal, injecta ble, preservative free, 3 yrs and above Unknown 04/24/2013 Administered Novel Inlbgsuzu-M4Z6-28, preservative free Unknown 06/22/2016 Administered Novel Wrivijarh-T1O9-13, preservative free Unknown 04/12/2017 Administered Novel Pyslbzirs-R4L0-82, preservative free Unknown 04/25/2018 Administered Novel Vggajmzdu-R3J5-21, preservative free Unknown 04/24/2019 Administered Novel Xzchtvboq-N0R1-05, preservative free Unknown 03/18/2020 Administered Pfizer Biontech [...] History Observation Description Sex Assigned At Male Social History Miscellaneous: Social Info Question Answer Notes Advance Care Planning Are you your own decision-maker Yes Do you have Power of [place] for Health or [facility]? 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 Active confirmed Problem Generalized anxiety disorder (18061867) Generalized anxiety disorder (F41.1) 4 Active confirmed Problem Alzheimer's disease with early onset (941858193) Alzheimer's disease with early onset (G30.0) Active confirmed Problem Essential hypertension (58230404) Essential (primary) hypertension (I10) Active confirmed Problem Generalized anxiety disorder (17063714) GRACIELA (generalized anxiety disorder) (F41.1) Active confirmed Vital Signs Heart Rate 76 /min 12/30/2024 Height-cm 175.26 cm 12/30/2024 Blood pressure diastolic 75 mm Hg 12/30/2024 Weight-kg 111.58 kg 12/30/2024 Height 69.00 in 12/30/2024 Blood pressure systolic 135 mm Hg 12/30/2024 Weight 246 lbs 12/30/2024 BMI 36.32 kg/m2 12/30/2024 Encounters Encounter Location Date Provider Diagnosis [facility] [employer] [address] [address] 05/24/2024 Mitchel Stone Major depressive disorder, recurrent severe without psychotic features F33.2 ; Generalized anxiety disorder F41.1 and Alzheimer's disease with early onset G30.0 [facility] [employer] [address] 08/12/2024 Mitchel Stone Major depressive disorder, recurrent severe without psychotic features F33.2 ; GRACIELA (generalized anxiety disorder) F41.1 ; Generalized anxiety disorder F41.1 and Alzheimer's disease with early onset G30.0 [facility] [employer] [address] 09/27/2024 Mitchel Stone Major depressive disorder, recurrent severe without psychotic features F33.2 ; GRACIELA (generalized anxiety disorder) F41.1 ; Alzheimer's disease with early onset G30.0 ; Encounter for screening for depression Z13.31 and Encounter for screening for cardiovascular disorders Z13.6 [facility] [employer] [facility] [address] [facility] [address] [address] 12/30/2024 Mitchel Stone Major depressive disorder, recurrent severe without psychotic features F33.2 ; GRACIELA (generalized anxiety disorder) F41.1 ; Alzheimer's disease with early onset G30.0 ; Encounter for screening for cardiovascular disorders Z13.6 ; Encounter for screening for depression Z13.31 and Essential (primary) hypertension I10 [facility] [employer] [place] [address] [place] [address] [place] [address] 03/20/2024 Mitchel Ritter Major depressive disorder, recurrent severe without psychotic features F33.2 [facility] [employer] [facility] [address] [place] [address] [place] [address] 03/25/2024 Mitchel Ritter Assessments Encounter Date Diagnosis (ICD Code) Assessment [...] regimen: 200 mg twice a day. 12/30/2024 Alzheimer's disease with early onset (ICD-10 [...] regimen. 05/24/2024 Other referral to the local chapter or national office of the Alzheimer's Association [...] Monitor for signs of infection. - Recommend mvav-wzg-[id number] pain relief as needed for pain management. [...] August 27 appointment. - Consider referral to cad application support specialist based on MRI findings. Depression and [...] ensure accuracy, there may be errors, including nursing assistant inaccuracies and misspellings of medication names. This [...] Provider Name:Mitchel Ritter , 05/19/2025 11:00:00 AM, [address], [address], [place], [address], Insurance Providers Payer Name Payer Address Payer Phone Subscriber Number Group Number Insured Name Patient Relationship to Insured Coverage Start Date Coverage End Date [place] [address] [place] [phone] [id number] LORRAINE COOPER Self - patient is the insured Nohemi Salazar [address] [place] [address] [id number] I [id number] HAYLIE COOEPR Spouse - patient is the spouse of the insured Medical (General) History Medical History History ICD Code Imported from Highlights: O Imported from Highlights: On December 15, 2023, the patient had multiple visits to the [facility] and received clinical support. [...] Th e patient had multiple encounters at [facility] on 08/30/2024. The patient was seen [...] History Surgery Date(Month/Year) Any surgical history Appendectomy (04880) 06/26/1970 Other back surgery 06/26/1990 Sinus surgery 11/24/2021
--- OUTSIDE RECORDS SUMMARY | 2025-02-12 09:47 | XMS_ITS | Clinical Summary ---
Author Organization [facility] Address [address] [place] [address] Care Team Providers Care Shoulder Puncher Name Role Phone Unavailable Primary Care Provider [...]
== END 2025-02-12 09:39 | disposition home or self-care (01) ==
PROVIDERS: PCP Internal Medicine; Visit Provider Internal Medicine
DX: R06.2 Wheezing (principal); R06.00 Dyspnea, unspecified
CPT/HCPCS: 94060; 94726; 94729; 95012

== ENCOUNTER 2025-03-17 09:55 | Outpatient (CLI) | payer OTHER, MEDICARE, SELFPAY ==
--- NOTE | ~2025-03-17 | CT_ITS ---
EXAMINATION: CT chest high resolution wo mn DATE: 03/17/2025 10:23 INDICATION: Pulmonary fibrosis. Restrictive lung disease. TECHNIQUE: Computed tomography (CT) of the chest was performed without intravenous contrast. The dose-length product was 575.48 mGy-cm. COMPARISON: None FINDINGS: No thoracic lymphadenopathy. There is atherosclerosis of the aorta and coronary arteries. Heart size normal. The upper abdomen is unremarkable. There is bilateral lower lobe atelectasis. No focal pneumonia. No endobronchial lesions. No pneumothorax. No significant pleural or pericardial effusion. Spinal stimulator leads are noted. No suspicious pulmonary nodules or masses. IMPRESSION: 1. Bilateral lower lobe atelectasis. Reviewed, dictated and finalized at location O.
--- OUTSIDE RECORDS SUMMARY | 2025-03-17 11:06 | XMS_ITS | Clinical Summary ---
Author Organization [facility] Address [address] [place] [address] Care Team Providers Care Radiology Physician Name Role Phone Unavailable Primary Care Provider [...] COVID-19 Vaccine ( - 2023-2 5 season) 2025 RSV Immunization or 60+ Years (1 - [...]
--- OUTSIDE RECORDS SUMMARY | 2025-03-17 11:06 | XMS_ITS | Clinical Summary ---
Author Organization [facility] Address [address] [address] Phone Care Team Providers Care Product Mgmt Dev Manager Name Role Phone Kayla lUloa MD Primary Care Provider [phone] Allergies No known active allergies Medications memantine [...] 2004 Zoster Immunization (1 of 2) 2004 Influenza Immunization (#1) 2025 SARS-COV-2 Immunization ( season) 2025 04/05/2021, 09/04/2020, 2020 Colonoscopy 04/01/2025 04/01/2020, 12/25/2018 Colorectal Cancer Screening [...] patient's age to complete this topic [facility] Care Teams Product Mgmt Dev Manager Relationship Specialty Start Date End Date Kayla Ulloa MD [address] [place] [address] PCP - General Internal Medicine 12/12/18
== END 2025-03-17 09:56 | disposition home or self-care (01) ==
LOC: CHSIMG 10:02
PROVIDERS: PCP Internal Medicine; Visit Provider Internal Medicine
DX: J84.10 Pulmonary fibrosis, unspecified (principal); K76.89 Other specified diseases of liver; J98.11 Atelectasis
CPT/HCPCS: 71250

== ENCOUNTER 2025-03-20 08:12 | Outpatient (RCR) | payer OTHER, MEDICARE, SELFPAY ==
--- NOTE | 2025-03-20 09:06 | OPREHPOC ---
Outpatient Therapy Plan of Care This is a Multidisciplinary Plan of Care that may contain components documented by all disciplines (PT, OT, and ST.) PT Problem 1 PT Problem #1 Knowledge Deficit PT Goal 1 Goal / Goal Update Independent and compliant with HEP. Target Visit 2 PT Problem 2 PT Problem #2 Impaired Strength PT Goal 1 Goal / Goal Update Pt to improve bilat LE strength to 5/5. Target Visit 12 PT Problem 3 PT Problem #3 Impaired Gait PT Goal 1 Goal / Goal Update Pt to improve 6MWT distance to 1000ft without rest and with safe use of AD. Target Visit 12 PT Problem 4 PT Problem #4 Impaired Balance PT Goal 1 Goal / Goal Update Pt to improve Tinetti score by 5 points to reflect reduced fall risk. Pt to report no falls in the last month. Target Visit 12
--- NOTE | 2025-03-20 09:06 | PTOPEVAL1 ---
Assessment and note entered by Lisette Dao, PT Evaluation Information Assessment Status Evaluation Diagnosis Parkinsonism and unsteady gait ICD-10 Condition Codes (PT) Weakness R53.1 Other ICD-10 Condition Codes ( G20.C primary parkinsonism, R41.3 memory changes, PT) R26.81 unsteady gait Onset 03/14/2025 Subjective Information Pt reports he has Parkinson's and has balance problems. He uses a rollator when he walks both in and out of the house. He reports he's started falling a lot more in the last couple months. He reports up to 20 falls in the last 6 months and his most recent fall being one week ago. He states he takes his medication for Parkinson's every 3 hours and thinks it's been helping. He reports chronic back pain that is currently 9/10 in severity, he has a stimulator in the lower back and also in his bladder. He has had therapy for the back but reports it's didn't help. He reports his bladder stimulator has been helpful in allowing him to go longer before going to the bathroom but his back stimulator doesn't help much . Reported Pain Level Pain Score 9: Self Report Assessment PT Clinical Summary Mr. Cuevas is a 69 yr old male presenting to skilled PT evaluation for primary parkinsonism and imbalance. He demonstrates lower extremity weakness, is high fall risk per Tinetti, and demonstrates reduced endurance per 6MWT. He also demonstrates postural deficits and unsafe use of DME when ambulating. He will benefit from skilled PT intervention to improve balance, strength, postural awareness, and safety to reduce fall risk and frequency of falls. Plan of Care Interventions Gait Training,Hot Pack/Cold Pack,Manual Therapy, Neuro Re-education,Patient/Caregiver Education, Therapeutic Activities,Therapeutic Exercise,Self- Care/Home Management PT Services Indicated Yes Treatment Frequency and 2x/week for 12 visits Duration These treatments will address the objective and functional deficits as defined above. The patient will be advanced safely and appropriately in order for the patient to progress towards his/her prior level of function. Additional exercises will be introduced and as well as a comprehensive home exercise program upon discharge, if needed, ?to ensure carryover of functional gains achieved in the clinic. This treatment plan has been reviewed and agreement upon by the patient.
--- NOTE | 2025-04-24 09:48 | OPREHPOC ---
Outpatient Therapy Plan of Care This is a Multidisciplinary Plan of Care that may contain components documented by all disciplines (PT, OT, and ST.) PT Problem 1 PT Problem #1 Knowledge Deficit PT Goal 1 Goal / Goal Update Independent and compliant with HEP. Target Visit 2 Progress Met PT Problem 2 PT Problem #2 Impaired Strength PT Goal 1 Goal / Goal Update Pt to improve bilat LE strength to 5/5. Target Visit 12 Progress Not Met PT Problem 3 PT Problem #3 Impaired Gait PT Goal 1 Goal / Goal Update Pt to improve 6MWT distance to 1000ft without rest and with safe use of AD. Target Visit 12 Progress Not Met PT Problem 4 PT Problem #4 Impaired Balance PT Goal 1 Goal / Goal Update Pt to improve Tinetti score by 5 points to reflect reduced fall risk. Pt to report no falls in the last month. met Target Visit 12 Progress Partially Met
--- NOTE | 2025-04-24 09:48 | PTOPDC ---
Assessment and note entered by JT File, PT Evaluation Information Assessment Status Discharge Diagnosis Parkinsonism and unsteady gait ICD-10 Condition Codes (PT) Weakness R53.1 Other ICD-10 Condition Codes ( G20.C primary parkinsonism, R41.3 memory changes, PT) R26.81 unsteady gait Onset 03/14/2025 Subjective Information patient reports he is ready to DC therapy today. he reports he knows he will be back again, but wants to take a break for now. he reports his back has calmed down from his flare up after a recent PT visit. he reports he does not want to do any exercises for his lower back, as he believes these are what flared up his lower back pain recently. Reported Pain Level Pain Score 6: Self Report Assessment PT Clinical Summary mr. oro presents to skilled PT services for his 11th skilled PT visit. he reports wanting to DC therapy today, and continue with HEP independent at home at this time. he has improved his step length with ambulation, and tinetti balance score slightly. however, he has only partially met some of his goals. patient will DC skilled PT todat per his wishes, but it was advised he continue HEP at home and attend BID fall prevention class. Plan of Care PT Services Indicated Yes
== END 2025-04-24 16:25 | disposition home or self-care (01) ==
LOC: CHSPT 08:12
PROVIDERS: PCP Internal Medicine
DX: G20.C Parkinsonism, unspecified (principal); R26.81 Unsteadiness on feet; R41.3 Other amnesia
CPT/HCPCS: 97110; 97112; 97150; 97161; 97530

== ENCOUNTER 2025-06-04 10:15 | Outpatient (CLI) | payer OTHER, MEDICARE, SELFPAY ==
--- NOTE | ~2025-06-04 | CT_ITS ---
EXAMINATION: CT abdomen pelvis w con DATE: 06/04/2025 11:28 INDICATION: Acute left lower quadrant abdominal pain and left flank pain. TECHNIQUE: Computed tomography (CT) of the abdomen and pelvis was performed with 100 mL Omnipaque-350 intravenous contrast. Automated exposure control and iterative reconstruction technique were employed. The dose-length product was 1766.98 mGy-cm. COMPARISON: CT dated 11/12/2018 FINDINGS: Mild dependent and basilar atelectasis at the bilateral lower lobes. Mild cardiomegaly. Atherosclerotic coronary artery calcific location. No pericardial or pleural effusion. Liver, gallbladder, spleen, pancreas, bilateral adrenal glands and kidneys are normal. Moderate to large amount of stool scattered throughout the colon which could be seen with constipation. No dilated bowel to suggest obstruction. The appendix is not visualized. No pericecal inflammatory change to suggest acute appendicitis. Bladder is normal.. The uterus is not identified and has likely been surgically resected. Small right and moderate- sized left fat-containing inguinal hernias. No free intraperitoneal gas or fluid. No pathologically enlarged abdominal or pelvic lymphadenopathy. Right sacral nerve root stimulator with power supply the subcutis fat at the right buttock with lead in expected position extending through the right S3 neural foramen. Severe lumbar and moderate thoracic spondylosis with change of prior L4 and L5 laminectomies. There is also a spinal cord stimulator power supply the subcutaneous tissues at the left flank and with lead extending into the posterior central canal with distal tip at the level of T7-T8. IMPRESSION: 1. Moderate to large amount of colonic stool which could be seen with constipation. No other acute intra-abdominal/pelvic process. 2. Small right and moderate-sized left fat-containing inguinal hernias. Reviewed, dictated and finalized at location A. [employer] IMPRESSION: 1. Moderate to large amount of colonic stool which could be seen with constipat ion. No other acute intra-abdominal/pelvic process. 2. Small right and moderate-sized left fat-containing inguinal hernias.
[2025-06-04 10:53] LABS: Estimated Glomerular Filt Rate 57
== END 2025-06-04 10:16 | disposition home or self-care (01) ==
PROVIDERS: PCP Internal Medicine; Visit Provider Internal Medicine
DX: R10.A2 Flank pain, left side (principal); K40.90 Unilateral inguinal hernia, without obstruction or gangrene, not specified as recurrent
CPT/HCPCS: 74177; Q9967